=== PATIENT | male | born 1945 | race Caucasian/White ===

== ENCOUNTER 2023-04-15 06:02 | Inpatient (IN) | payer MEDICARE, OTHER, SELFPAY ==
[2023-04-07 07:26] VITALS: BMI 23.9
[2023-04-07 08:49] LABS: Hematocrit 44.8 % (39.0-52.0); Hemoglobin 14.9 g/dL (13.0-18.0); Mean Corp Hgb Conc. 33.3 g/dL (33.0-37.0); Mean Corpuscular Volume 87.2 fL (80.0-94.0); Mean Platelet Volume 11.7 fL (7.4-10.4); Platelet Count 292 10^3/uL (130-400); Red Blood Cell Count 5.14 10^6/uL (4.70-6.10); Red Cell Dist. Width 13.2 % (11.5-14.5); White Blood Cell Count 5.6 10^3/uL (4.8-10.8)
[2023-04-07 08:59] LABS: INR 1.05; PT 13.7 Sec (11.4-14.6)
[2023-04-07 09:12] LABS: APTT 40.3 Sec (23.4-35.0)
[2023-04-07 09:58] LABS: Glycohemoglobin (HgbA1c) 6.2 % (4.0-5.6)
[2023-04-07 10:08] LABS: ALT (SGPT) 17 U/L (0-50); AST (SGOT) 21 U/L (17-59); Albumin 3.5 g/dl (3.5-5.0); Alkaline Phosphatase 72 U/L (38-126); Blood Urea Nitrogen 26 mg/dl (9-20); Calcium 9.8 mg/dl (8.4-10.2); Carbon Dioxide 28 mmol/L (22-30); Chloride 106 mmol/L (98-107); Estimated Creatinine Clearance 45 ml/min; Glucose 106 mg/dl (70-99); Potassium 4.5 mmol/L (3.5-5.1); Sodium 140 mmol/L (135-145); Total Bilirubin 0.6 mg/dl (0.2-1.3); Total Protein 6.7 g/dl (6.3-8.2); eGFR 51.77
[2023-04-15] VITALS (13 sets, daily range): BP systolic 45–149; BP diastolic 74–87; BMI 23.9
[2023-04-15] MEDS: NEURONTIN 600 MG PO (06:26)
[2023-04-15] MEDS: ENTEREG 12 MG PO (06:27)
[2023-04-15] MEDS: HEPARIN 5000 UNITS SC (06:27)
[2023-04-15] MEDS: TYLENOL 1000 MG PO (06:27)
[2023-04-15] MEDS: NORMOSOL-R 1000 IV (06:37)
--- NOTE | 2023-04-15 12:23 | W.IMMPOSTOP ---
Addendum entered and electronically signed by Aron Smith MD 04/15/23 12:33:
Updated patient's , Denise, via phone.
Original Note:
Surgical Immed Post Op Note
-
Primary Surgeon: Nena Smith MD
Assisting Surgeon: ADILENE Means
Pre-op Diagnosis: 1) colostomy 2) history of complicated diverticulitis
Post-op Diagnosis: same
Procedure Performed: 1) robotic colostomy takedown 2) flexible sigmoidoscopy
Anesthesia Type: general plus local
Specimen / Cultures: 1) colostomy 2) upper rectum
Estimated Blood Loss: 100 cc
Complications: no immediate
Operative Findings: 1) adhesions 2) a bit oozy (venous)-1 gram IV TXA given during case.
#19 Marques in pelvis.
Lund, left stent, and ueteral ICG by Dr. Handley of urology.
Will send to med surg.
[2023-04-15 14:06] LABS: % Basophils 0.1 % (0-2); % Immature Granulocytes 0.4 % (0-0.5); % Lymphocytes 4.4 % (20.5-51.1); % Neutrophils 93.1 % (42.2-75.2); Absolute Lymphocytes 0.4 10^3/uL (1.2-3.4); Absolute Monocytes 0.2 10^3/uL (0.1-0.6); Absolute Neutrophils 7.9 10^3/uL (1.4-6.5); Hematocrit 42.4 % (39.0-52.0); Hemoglobin 14.5 g/dL (13.0-18.0); Mean Corp Hgb Conc. 34.2 g/dL (33.0-37.0); Mean Corpuscular Hgb 29.4 pg (27.0-31.0); Mean Platelet Volume 11.5 fL (7.4-10.4); Nucleated Red Blood Cells % 0 % (-); Platelet Count 219 10^3/uL (130-400); Red Blood Cell Count 4.93 10^6/uL (4.70-6.10); Red Cell Dist. Width 13.5 % (11.5-14.5); White Blood Cell Count 8.5 10^3/uL (4.8-10.8)
[2023-04-15 14:12] LABS: Blood Urea Nitrogen 27 mg/dl (9-20); Calcium 8.3 mg/dl (8.4-10.2); Carbon Dioxide 19 mmol/L (22-30); Chloride 106 mmol/L (98-107); Estimated Creatinine Clearance 45 ml/min; Glucose 191 mg/dl (70-99); Magnesium 2.3 mg/dl (1.6-2.3); Potassium 3.9 mmol/L (3.5-5.1); Sodium 135 mmol/L (135-145); eGFR 51.77
[2023-04-15] MEDS: D5LR 1000 IV (14:25)
--- NOTE | 2023-04-15 15:26 | PTCARENOTE ---
Pt arrived to 2S in bed. Full assessment completed. Pt drowsy but easily arouses to verbal stimuli. Nasal cannula maintained. IVF infusing per order. R DIMITRI drain site C/D/I, serosanguineous output noted. R abdominal incisions glued and ELECTRO MECHANICAL TECHNOLOGIST, L
abdominal DSG C/D/I. Lund catheter clean and intact draining blood tinged yellow urine. Bed locked and in the lowest position, safety maintained. Oriented to room and call hearn.
[2023-04-15] MEDS: TYLENOL PO ×2 (16:51→20:41)
[2023-04-16] MEDS: TYLENOL PO ×5 (00:57→19:54)
[2023-04-16] MEDS: D5LR 1000 IV ×2 (01:30→13:05)
[2023-04-16 03:46] VITALS: BP 146/87
[2023-04-16 05:37] VITALS: BMI 23.6
[2023-04-16 06:16] LABS: % Basophils 0.1 % (0-2); % Immature Granulocytes 0.5 % (0-0.5); % Lymphocytes 7.5 % (20.5-51.1); % Monocytes 6.4 % (1.7-9.3); % Neutrophils 85.5 % (42.2-75.2); Absolute Immature Granulocytes 0.1 10^3/uL (0-0.05); Absolute Lymphocytes 0.7 10^3/uL (1.2-3.4); Absolute Monocytes 0.6 10^3/uL (0.1-0.6); Absolute Neutrophils 8.2 10^3/uL (1.4-6.5); Hematocrit 41.4 % (39.0-52.0); Hemoglobin 14.1 g/dL (13.0-18.0); Mean Corp Hgb Conc. 34.1 g/dL (33.0-37.0); Mean Corpuscular Hgb 29.3 pg (27.0-31.0); Mean Corpuscular Volume 85.9 fL (80.0-94.0); Mean Platelet Volume 12.3 fL (7.4-10.4); Nucleated Red Blood Cells % 0 % (-); Platelet Count 228 10^3/uL (130-400); Red Blood Cell Count 4.82 10^6/uL (4.70-6.10); Red Cell Dist. Width 13.4 % (11.5-14.5); White Blood Cell Count 9.6 10^3/uL (4.8-10.8)
[2023-04-16 06:45] LABS: Blood Urea Nitrogen 24 mg/dl (9-20); Calcium 9.2 mg/dl (8.4-10.2); Carbon Dioxide 26 mmol/L (22-30); Chloride 104 mmol/L (98-107); Estimated Creatinine Clearance 49 ml/min; Glucose 145 mg/dl (70-99); Magnesium 2.3 mg/dl (1.6-2.3); Potassium 4.7 mmol/L (3.5-5.1); Sodium 138 mmol/L (135-145); eGFR 56.58
[2023-04-16 07:42] VITALS: BP 158/88
[2023-04-16] MEDS: ENTEREG 12 MG PO ×2 (08:56→19:56)
[2023-04-16] MEDS: CARDIZEM CD 120 MG PO (08:56)
[2023-04-16] MEDS: TOPROL XL 75 MG PO (08:56)
[2023-04-16] MEDS: LOW STRENGTH ASPIRIN 81 MG PO (08:56)
[2023-04-16] MEDS: TYLENOL 650 MG PO ×2 (08:57→21:39)
[2023-04-16] MEDS: PROTONIX 40 MG PO (08:57)
--- NOTE | 2023-04-16 10:49 | W.PN.CRS1 ---
Today's Communication / Plan
-
Lund out, out of bed, clears.
Assessment/Plan
-
POD 1.
1. Trial clears.
2. Vitals and blood work reasonable.
3. DC Lund.
4. Out of bed.
5. Start Lovenox.
Subjective Data
Procedure
Robotic colostomy takedown on 04/15/2023
Subjective Data
Date of Service: April 16, 2023
Mild incisional discomfort. No nausea. In good spirits.
Objective Data
-
Vital Signs
Temp Pulse Resp BP Pulse Ox
97.6 F 87 16 158/88 97
04/16/23 07:42 04/16/23 07:42 04/16/23 07:42 04/16/23 07:42 04/16/23 07:42
Intake & Output
04/15/23 04/16/23 04/17/23
06:59 06:59 06:59
Intake Total 1470 / 1470
Output Total 1380 / 1380
Balance 90 / 90
Intake:
Oral fluids 120 / 120
IV fluids (Total) 1350 / 1350
D5LR 50 / 50
normosol 100 / 100
Output:
Drain Output (Total) 80 / 80
Right Lower Abdomen Jacek- 80 / 80
Bell
Urine, Lund 1300 / 1300
Lab Results
04/16/23 04:49
04/16/23 04:49
Physical Exam
-
General: No Acute Distress
Chest: Clear
Cardiovascular: Regular Rate & Rhythm
Abdomen: Soft, Non Distended, Tender (Mild) and Other (Some serosanguineous)
Extremities: No Calf Tenderness
[2023-04-16 11:37] VITALS: BP 141/96
--- NOTE | 2023-04-16 14:52 | CM ---
Reviewed the chart notes and spoke with the patient and his spouse at the bedside. The patient resides with his spouse in a two story home with two steps to enter. The patient reports no DME/SNF in the past, but has had [facility] in the past. The
patient confirmed his pharmacy of choice is [facility]. CM continues to be available to patient/family and is monitoring medical plan for needs at discharge.
Plan: Discharge to home when medically stable. No needs anticipated.
[2023-04-16 15:10] VITALS: BP 139/80
[2023-04-16] MEDS: LOVENOX 40 MG SC (18:13)
[2023-04-16 19:10] VITALS: BP 158/84
[2023-04-16 23:00] VITALS: BP 155/85
[2023-04-17] MEDS: MORPHINE SULFATE 2 MG IV (00:19)
[2023-04-17] MEDS: D5LR 1000 IV (00:20)
[2023-04-17 03:02] VITALS: BP 139/84
[2023-04-17] MEDS: TYLENOL PO ×5 (04:00→23:17)
[2023-04-17 05:35] VITALS: BMI 23.6
[2023-04-17 07:10] LABS: % Basophils 0.1 % (0-2); % Eosinophils 0.2 % (0-6); % Immature Granulocytes 0.3 % (0-0.5); % Lymphocytes 12.5 % (20.5-51.1); % Monocytes 8.7 % (1.7-9.3); % Neutrophils 78.2 % (42.2-75.2); Absolute Lymphocytes 1.4 10^3/uL (1.2-3.4); Absolute Monocytes 0.9 10^3/uL (0.1-0.6); Absolute Neutrophils 8.4 10^3/uL (1.4-6.5); Hematocrit 48.5 % (39.0-52.0); Hemoglobin 16.3 g/dL (13.0-18.0); Mean Corp Hgb Conc. 33.6 g/dL (33.0-37.0); Mean Corpuscular Volume 86.3 fL (80.0-94.0); Mean Platelet Volume 12.3 fL (7.4-10.4); Nucleated Red Blood Cells % 0 % (-); Platelet Count 236 10^3/uL (130-400); Red Blood Cell Count 5.62 10^6/uL (4.70-6.10); Red Cell Dist. Width 13.7 % (11.5-14.5); White Blood Cell Count 10.8 10^3/uL (4.8-10.8)
[2023-04-17 07:40] VITALS: BP 158/94
[2023-04-17 07:43] LABS: Blood Urea Nitrogen 18 mg/dl (9-20); Calcium 9.2 mg/dl (8.4-10.2); Carbon Dioxide 25 mmol/L (22-30); Chloride 107 mmol/L (98-107); Estimated Creatinine Clearance 53 ml/min; Glucose 121 mg/dl (70-99); Magnesium 2.1 mg/dl (1.6-2.3); Potassium 4.4 mmol/L (3.5-5.1); Sodium 135 mmol/L (135-145); eGFR > 60.00
[2023-04-17] MEDS: TYLENOL 650 MG PO (08:41)
[2023-04-17] MEDS: ENTEREG 12 MG PO ×2 (08:41→20:16)
[2023-04-17] MEDS: PROTONIX 40 MG PO (08:41)
[2023-04-17] MEDS: LOW STRENGTH ASPIRIN 81 MG PO (08:41)
[2023-04-17] MEDS: TOPROL XL 75 MG PO (08:41)
[2023-04-17] MEDS: CARDIZEM CD 120 MG PO (08:41)
--- NOTE | 2023-04-17 11:10 | W.PN.CRS1 ---
Addendum entered and electronically signed by David Tapia MD 04/17/23 11:44:
Patient seen and examined. Agree with assessment plan as documented below by INSURANCE ACCOUNT SPECIALIST.
No major complaints. Pain well-controlled. Reports some belching, but no nausea or vomiting. Reports passing some stool, minimal flatus. OOB/ambulating. Afebrile.
General:�No Acute Distress
Abdomen:�Soft, Non Distended, Tender (Mild incisional) and Other (DIMITRI with serosanguineous fluid)
POD #2�Colostomy reversal
AFVSS
Following expected post op course
Bowel function returning
Labs stable post op
--Advance to FLD
--OOB/Ambulate
--Multimodal pain management. Added Tramadol PO
--Continue home cardiac meds
--Continue DIMITRI until d/c
--VTE ppx with Lovenox and SCD's
Original Note:
Today's Communication / Plan
-
Advance to FLD
Assessment/Plan
-
77 yo male with history of complicated diverticulitis and colostomy creation who is now POD #2 Colostomy reversal
AFVSS
Following expected post op course
Bowel function returning
Labs stable post op
--Advance to FLD
--OOB/Ambulate
--Multimodal pain management. Added Tramadol PO
--Continue home cardiac meds
--Continue DIMITRI until d/c
--VTE ppx with Lovenox and SCD's
Subjective Data
Procedure
Robotic colostomy takedown on 04/15/2023
Subjective Data
Date of Service: April 17, 2023
Patient seen and examined at bedside with Dr. Tapia. Denies n/v. Has had some belching. Passing a little liquid rectally but not sure if he has passed much flatus. Tolerating clears. Abdominal discomfort minimal. Voiding well.
Objective Data
-
Vital Signs
Temp Pulse Resp BP Pulse Ox
97.7 F 64 16 158/94 95
04/17/23 07:40 04/17/23 07:40 04/17/23 07:40 04/17/23 07:40 04/17/23 07:40
Intake & Output
04/16/23 04/17/23 04/18/23
06:59 06:59 07:59
Intake Total 1470 / 1470 3380 / 3380
Output Total 1380 / 1380 2380 / 2380 300 / 300
Balance 90 / 90 1000 / 1000 -300 / -300
Intake:
Oral fluids 120 / 120 1460 / 1460
IV fluids (Total) 1350 / 1350 1920 / 1920
D5LR 50 / 50
normosol 100 / 100
Output:
Drain Output (Total) 80 / 80 140 / 140 300 / 300
Right Lower Abdomen Jacek- 80 / 80 140 / 140 300 / 300
Bell
Urine, Lund 1300 / 1300 800 / 800
Urine, Voided 1440 / 1440
Lab Results
04/17/23 06:08
04/17/23 06:08
Physical Exam
-
General: No Acute Distress
Chest: Clear
Abdomen: Soft, Non Distended, Tender (Mild incisional) and Other (DIMITRI with serosanguineous fluid)
Extremities: No Calf Tenderness
Incision: Clear, Dry, Intact
[2023-04-17 11:25] VITALS: BP 129/95
[2023-04-17 15:35] VITALS: BP 159/104
[2023-04-17] MEDS: LOVENOX 40 MG SC (17:31)
[2023-04-17 19:00] VITALS: BP 123/85
[2023-04-17 23:06] VITALS: BP 151/93
[2023-04-18] MEDS: ZOFRAN 4 MG IV (00:36)
--- NOTE | 2023-04-18 00:42 | PTCARENOTE ---
Reece POD 3 of colostomy takedown having n/v of dark brown emesis at this time (300ml) was changed to full liquid diet and was tolerating in the afternoon. Pt belly soft tender hyperactive b/l uppper quadrants hypoactive b/l lower, not passing
flatus but reports he has had small amount of mucus from rectum and has had throughout with his colostomy. DIMITRI drain has had large amount of serous output over the past 24 hours, over 200ml this morning possible blockage but drained immediately with
repositioning. this shift approx 150ml. Pt has done minimal ambulating even with encouragement. Daphne provided, made NPO per correctional probation officer colorectal MD. Pt resting in bed at this time reports he is feeling more comfortable.
[2023-04-18 03:00] VITALS: BP 158/93
--- NOTE | 2023-04-18 03:47 | PTCARENOTE ---
pt [address] [facility] POD 3 colostomy takedown had espinoza removed POD1, urine cont to remain blood tinged throughout yesterday but clearing to yellow at beginning of my shift, pt just voided 200ml blood tinged urine with approx 4-5 moderate clots. DIMITRI drain
output appears more yellow then serous at his last emptying. Pt reporting that he is feeling comfortable since receiving Zofran VS 158/93 HR 65 95RA 98.7.. Does not look like there are labs ordered in AM.
[2023-04-18] MEDS: TYLENOL PO ×3 (04:34→23:45)
--- NOTE | 2023-04-18 04:40 | PTCARENOTE ---
reached to oncall colorectal team, CBC and BMP ordered for morning. Pt resting comfortably, denies any pain or discomfort, denies nausea at this time
[2023-04-18 06:00] VITALS: BMI 23.0
[2023-04-18 06:33] LABS: % Basophils 0.2 % (0-2); % Eosinophils 0.4 % (0-6); % Immature Granulocytes 0.5 % (0-0.5); % Lymphocytes 17.2 % (20.5-51.1); % Monocytes 8.6 % (1.7-9.3); % Neutrophils 73.1 % (42.2-75.2); Absolute Immature Granulocytes 0.1 10^3/uL (0-0.05); Absolute Lymphocytes 1.9 10^3/uL (1.2-3.4); Absolute Monocytes 0.9 10^3/uL (0.1-0.6); Hematocrit 50.7 % (39.0-52.0); Hemoglobin 17.1 g/dL (13.0-18.0); Mean Corp Hgb Conc. 33.7 g/dL (33.0-37.0); Mean Corpuscular Hgb 28.9 pg (27.0-31.0); Mean Corpuscular Volume 85.6 fL (80.0-94.0); Mean Platelet Volume 11.7 fL (7.4-10.4); Nucleated Red Blood Cells % 0 % (-); Platelet Count 259 10^3/uL (130-400); Red Blood Cell Count 5.92 10^6/uL (4.70-6.10); Red Cell Dist. Width 13.8 % (11.5-14.5); White Blood Cell Count 10.9 10^3/uL (4.8-10.8)
--- NOTE | 2023-04-18 06:33 | PTCARENOTE ---
void at this time slight tinge of red, NO clots. DIMITRI output at end of shift empty at this time tinged pink. Pt had no further episodes of n/v remainder of shift.
[2023-04-18 06:55] LABS: Blood Urea Nitrogen 21 mg/dl (9-20); Calcium 9.5 mg/dl (8.4-10.2); Carbon Dioxide 27 mmol/L (22-30); Chloride 105 mmol/L (98-107); Estimated Creatinine Clearance 49 ml/min; Glucose 116 mg/dl (70-99); Potassium 4.7 mmol/L (3.5-5.1); Sodium 135 mmol/L (135-145); eGFR 56.58
[2023-04-18] MEDS: ULTRAM 50 MG PO (08:07)
[2023-04-18] MEDS: TOPROL XL 75 MG PO (08:10)
[2023-04-18] MEDS: TYLENOL 650 MG PO ×3 (08:12→20:01)
[2023-04-18] MEDS: ENTEREG 12 MG PO ×2 (08:12→20:01)
[2023-04-18] MEDS: LOW STRENGTH ASPIRIN 81 MG PO (08:12)
[2023-04-18] MEDS: PROTONIX 40 MG PO (08:12)
[2023-04-18] MEDS: CARDIZEM CD 120 MG PO (08:12)
[2023-04-18] MEDS: LR 1000 IV ×2 (09:39→20:28)
[2023-04-18 10:09] LABS: Body Fluid Creatinine 1.3 mg/dl
--- NOTE | 2023-04-18 10:21 | W.PN.CRS1 ---
Addendum entered and electronically signed by David Tapia MD 04/18/23 11:06:
Patient seen and examined with PHARMACY BENEFITS COORDINATOR. Agree with assessment plan as documented below.
Issues with nausea and vomiting overnight, back down to NPO. Denies current nausea, but burping and hiccuping. Reports lower abdominal pressure/discomfort. No flatus, minimal liquid per rectum with voiding. Reports of some clots with bleeding
overnight, currently clear and without clots. Afebrile.
Gen: NAD
Abd: soft, mild/moderate tenderness in lower abdomen, mild distension, non-peritoneal, incisions c/d/i - no erythema, ecchymosis or drainage, DIMITRI serous
POD #3�Colostomy reversal
Afebrile, some htn noted
Nausea overnight
Increased DIMITRI outputs noted, DIMITRI fluid sent for cr and equivalent to serum Cr. Increased output likely reactive fluid.
Hematuria overnight, now resolved. Likely secondary to recent instrumentation
Labs stable post op
--NPO with sips, discussed NGT if further nausea or abdominal pain
--Restart IVF and continue until tolerating PO
--OOB/Ambulate
--Multimodal pain management
--Continue home cardiac meds
--Continue DIMITRI
--VTE ppx with Lovenox and SCD's
Original Note:
Today's Communication / Plan
-
NPO until bowel recovery
Start IVF
Assessment/Plan
-
77 yo male with history of complicated diverticulitis and colostomy creation who is now POD #3 Colostomy reversal
Afebrile, some htn noted
Nausea overnight
Increased DIMITRI outputs noted, DIMITRI fluid sent for cr and equivalent to serum Cr. Increased output likely reactive fluid.
Hematuria overnight, now resolved. Likely secondary to recent instrumentation
Labs stable post op
--NPO with sips
--Restart IVF and continue until tolerating PO
--OOB/Ambulate
--Multimodal pain management
--Continue home cardiac meds
--Continue DIMITRI
--VTE ppx with Lovenox and SCD's
Subjective Data
Procedure
Robotic colostomy takedown on 04/15/2023
Subjective Data
Date of Service: April 18, 2023
Patient seen and examined at bedside with Dr. Tapia. Developed nausea overnight, now resolved. Belching persists. Not much flatus but does note that there is some liquid passing rectally with each void. Abdominal discomfort manageable. Some
hematuria overnight now resolved.
Objective Data
-
Vital Signs
Temp Pulse Resp BP Pulse Ox
98.7 F 72 14 163/101 95
04/18/23 03:00 04/18/23 08:10 04/18/23 03:00 04/18/23 08:10 04/18/23 03:00
Intake & Output
04/17/23 04/18/23 04/19/23
05:59 06:59 06:59
Intake Total 480 / 480
Output Total 1100 / 1100
Balance -620 / -620
Intake:
Oral fluids 480 / 480
IV fluids (Total)
Output:
Emesis 300 / 300
Drain Output (Total) 250 / 250
Right Lower Abdomen Jacek- 250 / 250
Bell
Urine, Lund
Urine, Voided 550 / 550
Lab Results
04/18/23 06:13
04/18/23 06:13
Physical Exam
-
General: No Acute Distress
Abdomen: Soft, Non Distended, Tender (Mild to the lower pelvis) and Other (DIMITRI with light mostly serous fluid)
Incision: Clear, Dry, Intact
[2023-04-18 10:30] VITALS: BP 148/80
[2023-04-18 11:45] VITALS: BP 149/94
[2023-04-18] MEDS: ULTRAM 25 MG PO (14:09)
[2023-04-18 15:18] VITALS: BP 169/87
[2023-04-18] MEDS: LOVENOX 40 MG SC (17:03)
[2023-04-18 19:32] VITALS: BP 161/96
[2023-04-18 23:03] VITALS: BP 148/91
[2023-04-19] VITALS (9 sets, daily range): BP systolic 122–190; BP diastolic 74–111; PULSE 69; O2SAT 94; BMI 22.7
[2023-04-19] MEDS: TYLENOL 650 MG PO ×3 (00:11→11:09)
[2023-04-19] MEDS: ULTRAM 50 MG PO ×2 (00:49→07:03)
[2023-04-19] MEDS: MORPHINE SULFATE 4 MG IV ×4 (01:26→20:09)
[2023-04-19] MEDS: TYLENOL PO (03:24)
[2023-04-19 05:35] LABS: Hematocrit 46.9 % (39.0-52.0); Hemoglobin 15.9 g/dL (13.0-18.0); Mean Corp Hgb Conc. 33.9 g/dL (33.0-37.0); Mean Corpuscular Hgb 29.1 pg (27.0-31.0); Mean Corpuscular Volume 85.7 fL (80.0-94.0); Mean Platelet Volume 11.7 fL (7.4-10.4); Platelet Count 240 10^3/uL (130-400); Red Blood Cell Count 5.47 10^6/uL (4.70-6.10); Red Cell Dist. Width 13.6 % (11.5-14.5); White Blood Cell Count 7.7 10^3/uL (4.8-10.8)
[2023-04-19 05:59] LABS: Blood Urea Nitrogen 32 mg/dl (9-20); Calcium 9.5 mg/dl (8.4-10.2); Carbon Dioxide 28 mmol/L (22-30); Chloride 102 mmol/L (98-107); Estimated Creatinine Clearance 48 ml/min; Glucose 107 mg/dl (70-99); Potassium 4.9 mmol/L (3.5-5.1); Sodium 135 mmol/L (135-145); eGFR 56.58
[2023-04-19] MEDS: LOW STRENGTH ASPIRIN 81 MG PO (07:41)
[2023-04-19] MEDS: ENTEREG 12 MG PO (07:42)
[2023-04-19] MEDS: TOPROL XL 75 MG PO (07:42)
[2023-04-19] MEDS: CARDIZEM CD 120 MG PO (07:42)
[2023-04-19] MEDS: PROTONIX 40 MG PO (07:42)
[2023-04-19] MEDS: LR 1000 IV ×2 (08:59→21:39)
[2023-04-19] MEDS: APRESOLINE 5 MG IV ×2 (09:30→16:19)
--- NOTE | 2023-04-19 10:05 | W.PN.CRS1 ---
Today's Communication / Plan
-
abdominal xrays
PT
Assessment/Plan
-
Assessment: 77 yo male with history of complicated diverticulitis and colostomy creation who is now�POD #4�Colostomy reversal
Plan:
1. Vitals normal.
2. Hypertensive - hydralazine PRN ordered.
3. Continue SILVIANO drain until discharge.
4. OOB. PT ordered.
5. Pain management: Tylenol standing, Morphine/Ultram PRN.
6. Given lack of bowel function and pain, abdominal xrays ordered.
7. Remain NPO with sips.
8. DVT prophylaxis: TEDS/SCDS and Lovenox.
Subjective Data
Procedure
Robotic colostomy takedown on 04/15/2023
Subjective Data
Date of Service: April 19, 2023
Patient states he has not had flatus or a bowel movement. He is burping. He vomited yesterday but not today. He has a lot of abdominal pain that comes and goes.
Objective Data
-
Vital Signs
Temp Pulse Resp BP Pulse Ox
97.5 F 68 17 158/103 95
04/19/23 07:52 04/19/23 09:30 04/19/23 07:52 04/19/23 09:30 04/19/23 07:52
Intake & Output
04/18/23 04/19/23 04/20/23
06:59 06:59 06:59
Intake Total 2160 / 2160
Output Total 2044
Balance 115 / 115
Intake:
Oral fluids 480 / 480
IV fluids (Total) 1680 / 1680
Output:
Emesis 300 / 300
Drain Output (Total) 670 / 670
Right Lower Abdomen Jacek- 670 / 670
Bell
Urine, Voided 1075 / 1075
Other:
Number of approximated MODERATE 2
amounts of urine
Lab Results
04/19/23 05:00
04/19/23 05:00
Physical Exam
-
General: No Acute Distress and AOx3
Abdomen: Soft, Tender (lower pelvis), Guarding and Other (silviano serous)
--- NOTE | 2023-04-19 14:23 | CM ---
Reviewed the chart notes and spoke with the patient at the bedside. Patient no NPO with NGT. CM continues to be available to patient/family and is monitoring medical plan for needs at discharge.
Plan: Discharge to home when medically stable. No needs anticipated.
[2023-04-19] MEDS: LOVENOX 40 MG SC (17:25)
[2023-04-19] MEDS: DILAUDID 1 MG IV (23:43)
[2023-04-20] VITALS (7 sets, daily range): BP systolic 115–165; BP diastolic 81–98; BMI 23.2
[2023-04-20] MEDS: DILAUDID 1 MG IV ×2 (02:51→22:18)
[2023-04-20] MEDS: MORPHINE SULFATE 4 MG IV (05:39)
[2023-04-20] MEDS: CARDIZEM 125 IV (06:03)
[2023-04-20] MEDS: DILAUDID 0.5 MG IV (08:05)
[2023-04-20] MEDS: PROTONIX IV 40 MG IV (08:06)
[2023-04-20] MEDS: NSS (PRESERVATIVE FREE) 10 ML IV (08:06)
[2023-04-20] MEDS: LR 1000 IV (10:59)
[2023-04-20 11:15] LABS: Blood Urea Nitrogen 32 mg/dl (9-20); Calcium 9.1 mg/dl (8.4-10.2); Carbon Dioxide 26 mmol/L (22-30); Chloride 106 mmol/L (98-107); Estimated Creatinine Clearance 53 ml/min; Glucose 105 mg/dl (70-99); Potassium 4.3 mmol/L (3.5-5.1); Sodium 136 mmol/L (135-145); eGFR > 60.00
--- NOTE | 2023-04-20 11:38 | W.PN.CRS1 ---
Today's Communication / Plan
-
Continue n.p.o. and NGT to LCS, continue IVF
Assessment/Plan
-
77-year-old male with PMH of A-fib (not on AC), HTN, stage III CKD and perforated diverticulitis with Bergman's procedure in 11/2022, presents for elective surgery
POD 5 robotic colostomy reversal c/b prolonged return of bowel function
AFVSS, abdominal exam mostly stable but feeling better after NG tube placement
No labs today
� Continue n.p.o. with IVF and NGT to LCS
�DIMITRI drain to bulb suction
� Continue pain control with Tylenol and tramadol as needed
� Continue DVT PPx with Lovenox
� Continue home meds
� I would not get a CT scan today as he has shown some clinical improvement, but would consider if no further improvement by tomorrow
� IS/OOB
Subjective Data
Procedure
Robotic colostomy takedown on 04/15/2023
Subjective Data
Date of Service: April 20, 2023
No overnight events. An NG tube was placed yesterday afternoon and put out 40 mL of brown fluid.
Pain well-controlled. Abdominal cramping and bloating improved.
Denies nausea/vomiting.
-flatus -BMs +voiding
Pt is OOB.
Objective Data
-
Vital Signs
Temp Pulse Resp BP Pulse Ox
97.6 F 75 16 153/88 97
04/20/23 11:26 04/20/23 11:26 04/20/23 11:26 04/20/23 11:26 04/20/23 11:26
Intake & Output
04/19/23 04/20/23 04/21/23
06:59 06:59 06:59
Intake Total 2160 / 2160 970 / 970
Output Total 2044 / 2044 1420 / 1420
Balance 115 / 115 -450 / -450
Intake:
Oral fluids 480 / 480
IV fluids (Total) 1680 / 1680 880 / 880
Amount instilled into GI Tube ( /
Total)
[place] Sump /
Output:
Emesis 300 / 300
Drain Output (Total) 670 / 670 430 / 430
Right Lower Abdomen Jacek- 670 / 670 430 / 430
Bell
Gastrointestinal tube output ( 40 /
Total)
[place] Sump 40 / 40
Urine, Voided 1075 / 1075 950 / 950
Other:
Number of approximated MODERATE 2
amounts of urine
Lab Results
04/19/23 05:00
04/20/23 10:34
Physical Exam
-
General: No Acute Distress and AOx3
HEENT: Other (NGT-40 mL brown output)
Abdomen: Soft, Distended (Mildly distended (somewhat improved from yesterday)), Non Tender, No Guarding, No Rebound and Other (DIMITRI-430 mL serous)
Skin: Warm and Dry
Wound: No Signs of Infection and No Skin Erythema
--- NOTE | 2023-04-20 11:49 | CM ---
Reviewed the chart notes. Patient continues with NPO , NGT, IVF, and DIMITRI drain. Patient ambulatory. CM continues to be available to patient/family and is monitoring medical plan for needs at discharge.
Plan: Discharge hopefully to home with no needs when medically stable.
[2023-04-20] MEDS: LOVENOX 40 MG SC (17:06)
[2023-04-21] VITALS (8 sets, daily range): BP systolic 132–156; BP diastolic 79–103; PULSE 94; O2SAT 92; BMI 22.9
[2023-04-21] MEDS: DILAUDID 0.5 MG IV ×5 (03:37→21:48)
[2023-04-21 07:31] LABS: Blood Urea Nitrogen 28 mg/dl (9-20); Carbon Dioxide 25 mmol/L (22-30); Chloride 106 mmol/L (98-107); Estimated Creatinine Clearance 52 ml/min; Glucose 93 mg/dl (70-99); Sodium 136 mmol/L (135-145); eGFR > 60.00
[2023-04-21] MEDS: FLUSH (NSS) 1 FLUSH IV (08:11)
[2023-04-21] MEDS: NSS (PRESERVATIVE FREE) 10 ML IV (08:11)
[2023-04-21] MEDS: PROTONIX IV 40 MG IV (08:11)
[2023-04-21] MEDS: LR 500 IV (08:15)
--- NOTE | 2023-04-21 09:23 | W.PN.CRS1 ---
Today's Communication / Plan
-
Continue NPO and NG tube
CT A/P
Assessment/Plan
-
77-year-old male with PMH of A-fib (not on AC), HTN, stage III CKD and perforated diverticulitis with Bergman's procedure in 11/2022, presents for elective surgery
POD 6 robotic colostomy reversal c/b prolonged return of bowel function
1. Continue n.p.o. with LR @ 80 and NGT to LCS
2. DIMITRI drain to bulb suction
3. Continue pain control with Tylenol and tramadol as needed
4. Continue DVT PPx with Lovenox
5. Continue home meds
6. Out of bed as tolerated.
7. I spoke with Dr. Smith and given his lack of improvement, CT A/P ordered.
Subjective Data
Procedure
Robotic colostomy takedown on 04/15/2023
Subjective Data
Date of Service: April 21, 2023
Patient states he has had no gas or bowel movements. He still feels a little bloated. He has been walking the halls. He denies nausea or vomiting.
Objective Data
-
Vital Signs
Temp Pulse Resp BP Pulse Ox
98.0 F 89 18 146/79 98
04/21/23 08:00 04/21/23 08:00 04/21/23 08:00 04/21/23 08:00 04/21/23 08:00
Intake & Output
04/20/23 04/21/23 04/22/23
06:59 06:59 06:59
Intake Total 970 / 970 780 / 780
Output Total 1420 / 1420 1700 / 1700
Balance -450 / -450 -920 / -920
Intake:
Oral fluids 240 / 240
IV fluids (Total) 880 / 880 360 / 360
Amount instilled into GI Tube ( 90 / 90 180 / 180
Total)
[place] Sump 90 / 90 180 / 180
Output:
Drain Output (Total) 430 / 430 150 / 150
Right Lower Abdomen Jacek- 430 / 430 150 / 150
Bell
Gastrointestinal tube output ( 40 / 40 300 / 300
Total)
[place] Sump 40 / 40 300 / 300
Urine, Voided 950 / 950 1250 / 1250
Lab Results
04/19/23 05:00
04/21/23 05:44
Physical Exam
-
General: No Acute Distress and AOx3
Abdomen: Soft, Distended (Mild), Non Tender and Other (DIMITRI drain serous)
Skin: Warm
[2023-04-21] MEDS: OMNIPAQUE 50 ML PO (11:08)
--- NOTE | 2023-04-21 11:10 | PTCARENOTE ---
Addendum entered by Mayra Kunz RN 04/21/23 13:17:
pt transported to CT scan via stretcher with volunteer.
Addendum entered by Mayra Kunz RN 04/21/23 12:34:
ct contrast #2 instilled via NGT at 1205. pt c/o abdominal fullness and discomfort-medicated per APR.
Original Note:
CT contrast cup #1 instilled via R NGT without incident. NGT remains clamped. denies nausea. will observe.
--- NOTE | 2023-04-21 12:09 | CM ---
Reviewed the chart notes. Per notes, continue NPO, DIMITRI drain, and NG tube. Patient ambulatory in hallways. CM continues to be available to patient/family and is monitoring medical plan for needs at discharge.
Plan: Discharge to home with hopefully no needs.
--- NOTE | 2023-04-21 13:54 | CON.HOSP ---
Consultation
-
Date/Time Consultation Requested: 04/21/2023
Date/Time Consultation Performed: 04/21/2023
Requesting Provider: Dr Smith
Performing Provider: Dr Garcia
Reason for Consultation: Medical comanagement
Family Physician
-
Family Physician: Rachele Aguiar
Chief Complaint
-
Status post colostomy takedown/medical comanagement.
History of Present Illness
Patient is 77 years old male with history of complicated diverticulitis and colostomy who underwent colostomy takedown on 04/15 and remains in the hospital with postoperative ileus. Patient with history of paroxysmal atrial fibrillation, NSVT,
hypertension, chronic kidney disease and dyslipidemia. Medicine service has been consulted for medical comanagement.
Patient with prolonged postoperative ileus remains with NG tube awaiting for bowel function return. Not able to take oral medications including antihypertensive.
Medical History
Past Medical History
Past Medical History: Reports Arrhythmia and HTN
Past Surgical History: Reports Bowel Resection
Social History
Tobacco: Non-smoker
Alcohol: None
Drug: None
Living: With Family
Allergies / Home Medications
Allergies reflects when Allergies were last updated in [employer].
Home Medications with original date entered in [employer]
Allergy/Medication List:
Allergies
Allergy/AdvReac Type Severity Reaction Status Date / Time
No Known Allergies Allergy Verified 04/15/23 06:12
Home Medications
aspirin 81 mg chewable tablet 81 mg PO DAILY Blood clot prevention/tx #30 tabs 11/15/22
diltiazem HCl 120 mg capsule,extended release 24 hr (Cardizem CD) 120 mg PO DAILY Arrhythmia #30 caps 11/15/22
metoprolol succinate 50 mg tablet,extended release 24 hr 75 mg PO DAILY 04/13/23
sodium sul 1.479 gram-potas ch 0.188 gram-magnes sul 0.225 gram tablet (Sutab) 0 tab PO PRE OP 04/13/23
Review of Systems
-
A 12 point Review of Systems was completed except as noted: Yes
Physical Exam
Vital Signs
Vital Signs
Temp Pulse Resp BP Pulse Ox
98.2 F 93 18 140/99 98
04/21/23 11:00 04/21/23 11:00 04/21/23 11:00 04/21/23 11:00 04/21/23 11:00
Physical Exam
General: Well Developed, Well Nourished and No Apparent Distress
HEENT: Normocephalic, Moist Mucous Membranes and Atraumatic
Respiratory: Clear
Cardiac: S1/S2 and Regular Rhythm; Negative Murmur or Rub
GI: Soft, Non Tender and Non Distended
Rectal: Deferred by Provider and Other (Hypoactive bowel sounds. Right lower quadrant DIMITRI drain)
Musculoskeletal: No Clubbing, No Cyanosis and No Edema
Skin: Negative Rash
Neuro: Awake, Alert, Oriented, AO x 3 and Nonfocal/Grossly Intact
Laboratory Results
-
Laboratory Results
04/19/23 05:00
04/21/23 05:44
PT 13.7 Sec (11.4-14.6) 04/07/23 06:37
INR 1.05 04/07/23 06:37
APTT 40.3 Sec (23.4-35.0) H 04/07/23 06:37
Total Bilirubin 0.6 mg/dl (0.2-1.3) 04/07/23 06:37
AST 21 U/L (17-59) 04/07/23 06:37
ALT 17 U/L (0-50) 04/07/23 06:37
Alkaline Phosphatase 72 U/L (38-126) 04/07/23 06:37
Impression / Plan
-
IMPRESSION:
Status post colostomy takedown.
Complicated diverticulitis with bowel resection and colostomy. (Gomez procedure 11/09/2022)
Postoperative ileus
Other conditions:
Short episode/self-limited postoperative A-fib.
NSVT.
CKD stage IIIa.
Essential hypertension
Dyslipidemia
PLAN:
NG tube in place awaiting return of bowel function
For repeat CT scan of the abdomen today
Cardiovascular
Remains in sinus rhythm with episodes of sinus tachycardia.
Monitor for recurrent A-fib
Has been off oral medications including diltiazem and metoprolol.
Continue Cardizem drip currently at 2.5 mg an hour.
Follow electrolytes.
Chronic kidney disease stage IIIa.
Creatinine at baseline
Medicine will follow.
--- NOTE | 2023-04-21 15:52 | W.PN.UPDATE ---
Update Note
Progress Note Update
CT scan done this afternoon reviewed. I reviewed both the images and report. CT shows evidence for small bowel obstruction. There is no evidence for free air, perforation, or pneumatosis intestinalis. There is no evidence for abscess or
anastomotic issue. I reviewed the results with the patient and his at the bedside. Given his relative stability and this being an early postop small bowel obstruction, I recommended continued medical measures for now. He may need TPN over
the next few days. Hopefully his obstruction will resolve with these measures. If not repeat imaging and potential for reoperative surgery may be needed.
[2023-04-21] MEDS: LOVENOX 40 MG SC (17:50)
[2023-04-21] MEDS: LR 1000 IV (21:43)
[2023-04-21] MEDS: LR IV (21:44)
[2023-04-22] MEDS: DILAUDID 1 MG IV ×2 (00:08→21:54)
[2023-04-22 03:41] VITALS: BP 122/83
[2023-04-22] MEDS: DILAUDID 0.5 MG IV ×4 (03:59→15:44)
[2023-04-22] MEDS: CARDIZEM 125 IV (04:20)
[2023-04-22] MEDS: LR IV (05:05)
[2023-04-22 05:31] LABS: Blood Urea Nitrogen 27 mg/dl (9-20); Carbon Dioxide 24 mmol/L (22-30); Chloride 103 mmol/L (98-107); Estimated Creatinine Clearance 57 ml/min; Glucose 94 mg/dl (70-99); Potassium 3.8 mmol/L (3.5-5.1); Sodium 135 mmol/L (135-145); eGFR > 60.00
[2023-04-22 06:00] VITALS: BMI 23.0
[2023-04-22 08:04] VITALS: BP 134/87
[2023-04-22] MEDS: NSS (PRESERVATIVE FREE) 10 ML IV (08:12)
[2023-04-22] MEDS: PROTONIX IV 40 MG IV (08:12)
--- NOTE | 2023-04-22 09:31 | W.PN.CRS1 ---
Today's Communication / Plan
-
KUB
NGT
Assessment/Plan
-
77-year-old male with PMH of A-fib (not on AC), HTN, stage III CKD and perforated diverticulitis with Bergman's procedure in 11/2022, presents for elective surgery
POD 7 robotic colostomy reversal, SBO
1.� Continue n.p.o. with LR @ 80 and NGT to LCS
2.� DIMITRI drain to bulb suction
3.� Continue pain control with Tylenol and tramadol as needed
4.� Continue DVT PPx with Lovenox
5.� Continue home meds
6.� Out of bed as tolerated with PT.
7. NGT with 1.2L output, KUB ordered.
8. No plans for surgery at this time.
9. Will consider TPN in the next few days if remains NPO/NGT.
Subjective Data
Procedure
Robotic colostomy takedown on 04/15/2023
Subjective Data
Date of Service: April 22, 2023
Patient states he feels 'about the same'. He has no nausea or vomiting. He has no gas or bowel movements today.
Objective Data
-
Vital Signs
Temp Pulse Resp BP Pulse Ox
97.7 F 95 18 134/87 95
04/22/23 08:04 04/22/23 08:04 04/22/23 08:04 04/22/23 08:04 04/22/23 08:04
Intake & Output
04/21/23 04/22/23 04/23/23
06:59 06:59 06:59
Intake Total 780 / 780 990 / 990
Output Total 1700 / 1700 670 / 670
Balance -920 / -920 320 / 320
Intake:
Oral fluids 240 / 240
IV fluids (Total) 360 / 360 990 / 990
Amount instilled into GI Tube ( 180 / 180
Total)
[place] Sump 180 / 180
Output:
Drain Output (Total) 150 / 150 20 / 20
Right Lower Abdomen Jacek- 150 / 150 20 / 20
Bell
Gastrointestinal tube output ( 300 / 300
Total)
[place] Sump 300 / 300
Urine, Voided 1250 / 1250 650 / 650
Lab Results
04/19/23 05:00
04/22/23 04:42
Physical Exam
-
General: No Acute Distress and AOx3
Abdomen: Soft, Non Distended and Non Tender
Skin: Warm and Dry
--- NOTE | 2023-04-22 09:48 | CM ---
Reviewed the chart notes. Continue NPO with IVF, DIMITRI drain and NGT. CM continues to be available to patient/family and is monitoring medical plan for needs at discharge.
Plan: Discharge to home when medically stable. No anticipated needs.
[2023-04-22] MEDS: LR 1000 IV (10:47)
[2023-04-22 11:55] VITALS: BP 130/83
[2023-04-22 15:34] VITALS: BP 126/90
[2023-04-22] MEDS: LOVENOX 40 MG SC (17:04)
--- NOTE | 2023-04-22 18:27 | W.PN.HOSP.TC ---
Today's Communication/Plan
-
Remains n.p.o. with NGT tube awaiting return of bowel function
Continue IV fluids monitor electrolytes
Continue IV Cardizem for rate control
Assessment / Plan
Assessment / Plan
IMPRESSION:�
Status post colostomy takedown.
Complicated diverticulitis with bowel resection and colostomy.� (Gomez procedure 11/09/2022)
Postoperative ileus
Other conditions:
Short episode/self-limited postoperative A-fib.
NSVT.
CKD stage IIIa.
Essential hypertension
Dyslipidemia
PLAN:
NG tube in place awaiting return of bowel function
Repeat CT scan and x-ray consistent with persistent small bowel obstruction.
Cardiovascular
Remains in sinus rhythm with episodes of sinus tachycardia.
Monitor for recurrent A-fib
Has been off oral medications including diltiazem and metoprolol.
Continue Cardizem drip currently at 2.5 mg an hour.
Follow electrolytes.
Chronic kidney disease stage IIIa.
Creatinine at baseline
Anticipated Discharge: > 48 hours
Subjective/Interval History
-
Date of Service: April 22, 2023
Objective Data
-
Vital Signs:
Vital Signs
Temp Pulse Resp BP Pulse Ox
97.8 F 101 18 126/90 96
04/22/23 15:34 04/22/23 15:34 04/22/23 15:34 04/22/23 15:34 04/22/23 15:34
I&O
04/21/23 04/22/23 04/23/23
06:59 06:59 06:59
Intake Total 780 / 780 990 / 990 1080 / 1080
Output Total 1700 / 1700 670 / 670 1130 / 1130
Balance -920 / -920 320 / 320 -50 / -50
Physical Exam
-
General: Well Developed and No Apparent Distress
HEENT: Normocephalic, Atraumatic and Moist Mucous Membranes
Respiratory: Clear to Auscultation
Cardiac: Regular Rhythm and S1/S2; Negative Murmur, Rub or Gallop
GI: Soft, Nontender, Nondistended, Normal Bowel Sounds and Other (NG tube. Right lower quadrant DIMITRI drain in place); Negative Organomegaly
Rectal: Deferred by Provider
Musculoskeletal: No Clubbing, No Cyanosis and No Edema
Skin: Negative Rash
Neuro: Nonfocal/Grossly Intact
[2023-04-22 20:19] VITALS: BP 131/90
[2023-04-22 23:15] VITALS: BP 110/84
--- NOTE | 2023-04-22 23:43 | PTCARENOTE ---
Pt ambulated on unit. Pt has passed small amounts of mucus from rectum and two very small pieces of formed soft stool.
[2023-04-23] VITALS (8 sets, daily range): BP systolic 115–155; BP diastolic 85–95; BMI 23.0
[2023-04-23] MEDS: LR 1000 IV ×2 (01:00→16:45)
[2023-04-23] MEDS: DILAUDID 0.5 MG IV ×6 (02:51→22:32)
[2023-04-23] MEDS: NSS (PRESERVATIVE FREE) 10 ML IV (07:45)
[2023-04-23] MEDS: PROTONIX IV 40 MG IV (07:45)
--- NOTE | 2023-04-23 10:10 | PTOTSP ---
Pt is taking daily walks in hallway with staffing consultant. Gait is steady without AD per RN. PT will sign off.
--- NOTE | 2023-04-23 10:42 | W.PN.CRS1 ---
Addendum entered and electronically signed by Aron Smith MD 04/23/23 16:16:
I saw and examined the patient.
The PA's note was reviewed and I agree with the note.
Comment:
Patient seen with PA in the a.m.
Denied bowel function although apparently had a BM this afternoon. Denied nausea. Minimal discomfort. Admits that he only walked once yesterday.
Afebrile. Heart rate 90s. Electrolytes reasonable.
NG tube with dark output.
Abdomen with some distention. Minimally tender. Incisions look fine.
Plain x-rays from yesterday with no change from prior set showing small bowel obstruction.
Continue current measures including n.p.o., NG tube, nutritional support via TPN. Emphasized the patient needs to get out of bed more and walk the halls.
Await further evidence for bowel function.
Original Note:
Today's Communication / Plan
-
PICC/TPN
Assessment/Plan
-
77-year-old male with PMH of A-fib (not on AC), HTN, stage III CKD and perforated diverticulitis with Bergman's procedure in 11/2022, presents for elective surgery
POD#8 robotic colostomy reversal, SBO
1.� Continue n.p.o. with LR @ 80 and NGT to LCS
2.� DIMITRI drain to bulb suction
3.� Continue pain control with Tylenol and tramadol as needed
4.� Continue DVT PPx with Lovenox
5.� Continue home meds
6.� Out of bed as tolerated with PT.
7.� Given lack of nutrition, will order PICC and TPN today.
8.� No plans for surgery at this time.
Subjective Data
Procedure
Robotic colostomy takedown on 04/15/2023
Subjective Data
Date of Service: April 23, 2023
Patient states he is in moderate pain which is unchanged. He denies nausea or vomiting. He has been walking the halls.
Objective Data
-
Vital Signs
Temp Pulse Resp BP Pulse Ox
98.3 F 96 18 115/85 96
04/23/23 07:15 04/23/23 09:14 04/23/23 09:14 04/23/23 09:14 04/23/23 07:15
Intake & Output
04/22/23 04/23/23 04/24/23
06:59 06:59 06:59
Intake Total 990 / 990 1140 / 1140
Output Total 670 / 670 1695 / 1695
Balance 320 / 320 -555 / -555
Intake:
IV fluids (Total) 990 / 990 990 / 990
Amount instilled into GI Tube ( 150 / 150
Total)
[place] Sump 150 / 150
Output:
Drain Output (Total) /
Right Lower Abdomen Jacek- /
Bell
Gastrointestinal tube output ( 700 / 700
Total)
[place] Sump 700 / 700
Urine, Voided 650 / 650 800 / 800
Lab Results
04/19/23 05:00
04/22/23 04:42
Physical Exam
-
General: No Acute Distress and AOx3
Abdomen: Soft, Non Distended and Tender (Mild around abdomen)
Incision: Clear, Dry, Intact
[2023-04-23 12:19] LABS: ALT (SGPT) 28 U/L (0-50); AST (SGOT) 34 U/L (17-59); Albumin 2.8 g/dl (3.5-5.0); Alkaline Phosphatase 63 U/L (38-126); Magnesium 2.2 mg/dl (1.6-2.3); Phosphorus 3.7 mg/dl (2.5-4.5); Total Bilirubin 1.6 mg/dl (0.2-1.3); Total Protein 5.4 g/dl (6.3-8.2); Triglycerides 116 mg/dl (10-149)
--- NOTE | 2023-04-23 14:05 | W.PN.HOSP.TC ---
Today's Communication/Plan
-
Awaiting return of bowel function
Remains with significant output through NG tube
Abdomen soft but hypoactive.
Follow electrolytes
TPN.
Continue Cardizem drip
Assessment / Plan
Assessment / Plan
IMPRESSION:�
Status post colostomy takedown.
Complicated diverticulitis with bowel resection and colostomy.� (Gomez procedure 11/09/2022)
Postoperative ileus
Other conditions:
Short episode/self-limited postoperative A-fib.
NSVT.
CKD stage IIIa.
Essential hypertension
Dyslipidemia
PLAN:
NG tube in place awaiting return of bowel function
Repeat CT scan and x-ray consistent with persistent small bowel obstruction.
Cardiovascular
Remains in sinus rhythm with episodes of sinus tachycardia.
Monitor for recurrent A-fib
Has been off oral medications including diltiazem and metoprolol.
Continue Cardizem drip currently at 2.5 mg an hour.
Follow electrolytes.
Chronic kidney disease stage IIIa.
Creatinine at baseline
Anticipated Discharge: > 48 hours
Subjective/Interval History
-
Date of Service: April 23, 2023
Objective Data
-
Labs:
Laboratory Results
04/23/23
11:29
Total Bilirubin 1.6 H
AST 34
ALT 28
Alkaline Phosphatase 63
Vital Signs:
Vital Signs
Temp Pulse Resp BP Pulse Ox
98.3 F 97 18 130/86 95
04/23/23 11:30 04/23/23 11:30 04/23/23 11:30 04/23/23 11:30 04/23/23 11:30
I&O
04/22/23 04/23/23 04/24/23
06:59 06:59 06:59
Intake Total 990 / 990 1140 / 1140
Output Total 670 / 670 1695 / 1695
Balance 320 / 320 -555 / -555
Physical Exam
-
General: Well Developed and No Apparent Distress
HEENT: Normocephalic, Atraumatic and Moist Mucous Membranes
Respiratory: Clear to Auscultation
Cardiac: Regular Rhythm and S1/S2; Negative Murmur, Rub or Gallop
GI: Soft, Nontender, Nondistended and Other (NG tube in place. Hypoactive bowel sounds); Negative Organomegaly
Rectal: Deferred by Provider
Musculoskeletal: No Clubbing, No Cyanosis and No Edema
Skin: Negative Rash
Neuro: Nonfocal/Grossly Intact
[2023-04-23] MEDS: CARDIZEM 125 IV (16:35)
[2023-04-23] MEDS: LOVENOX 40 MG SC (17:01)
[2023-04-23] MEDS: APRESOLINE 5 MG IV (17:05)
[2023-04-23] MEDS: LOPRESSOR 5 MG IV (18:22)
--- NOTE | 2023-04-23 19:17 | PTCARENOTE ---
Patient noted to have a nonsustained run of SVT, patient asymptomatic; Patient rhythm returned to normal sinus rhythm to sinus tachycardia; Dr. Smith made aware; House provider made aware
[2023-04-23 19:56] LABS: Blood Urea Nitrogen 30 mg/dl (9-20); Calcium 8.8 mg/dl (8.4-10.2); Carbon Dioxide 24 mmol/L (22-30); Chloride 104 mmol/L (98-107); Estimated Creatinine Clearance 57 ml/min; Glucose 103 mg/dl (70-99); Magnesium 2.2 mg/dl (1.6-2.3); Potassium 3.8 mmol/L (3.5-5.1); Sodium 136 mmol/L (135-145); eGFR > 60.00
[2023-04-23] MEDS: Parenteral Nutrition, Central 890 IV (21:01)
[2023-04-23 23:50] LABS: Glucose - Point of Care 124 mg/dl (70-99)
[2023-04-24] MEDS: LR 1000 IV ×2 (00:45→15:38)
[2023-04-24 03:10] VITALS: BP 136/92
[2023-04-24 06:00] VITALS: BMI 23.0
[2023-04-24 06:06] LABS: Glucose - Point of Care 133 mg/dl (70-99)
[2023-04-24 06:53] LABS: % Basophils 0.6 % (0-2); % Eosinophils 5.6 % (0-6); % Immature Granulocytes 2.1 % (0-0.5); % Lymphocytes 14.9 % (20.5-51.1); % Neutrophils 66.8 % (42.2-75.2); Absolute Eosinophils 0.4 10^3/uL (0-0.7); Absolute Immature Granulocytes 0.1 10^3/uL (0-0.05); Absolute Monocytes 0.7 10^3/uL (0.1-0.6); Absolute Neutrophils 4.4 10^3/uL (1.4-6.5); Hematocrit 42.3 % (39.0-52.0); Hemoglobin 14.3 g/dL (13.0-18.0); Mean Corp Hgb Conc. 33.8 g/dL (33.0-37.0); Mean Corpuscular Hgb 29.2 pg (27.0-31.0); Mean Corpuscular Volume 86.5 fL (80.0-94.0); Mean Platelet Volume 12.2 fL (7.4-10.4); Nucleated Red Blood Cells % 0 % (-); Platelet Count 208 10^3/uL (130-400); Red Blood Cell Count 4.89 10^6/uL (4.70-6.10); Red Cell Dist. Width 13.8 % (11.5-14.5); White Blood Cell Count 6.6 10^3/uL (4.8-10.8)
[2023-04-24 07:35] VITALS: BP 137/92
[2023-04-24 07:38] LABS: Blood Urea Nitrogen 28 mg/dl (9-20); Calcium 8.3 mg/dl (8.4-10.2); Carbon Dioxide 27 mmol/L (22-30); Chloride 108 mmol/L (98-107); Estimated Creatinine Clearance 57 ml/min; Glucose 141 mg/dl (70-99); Magnesium 2.3 mg/dl (1.6-2.3); Phosphorus 2.8 mg/dl (2.5-4.5); Potassium 3.7 mmol/L (3.5-5.1); Sodium 137 mmol/L (135-145); eGFR > 60.00
[2023-04-24] MEDS: NSS (PRESERVATIVE FREE) 10 ML IV (07:43)
[2023-04-24] MEDS: PROTONIX IV 40 MG IV (07:43)
[2023-04-24] MEDS: DILAUDID 0.5 MG IV ×4 (08:35→22:34)
--- NOTE | 2023-04-24 11:25 | W.PN.CRS1 ---
Today's Communication / Plan
-
NGT to LIWS
TPN
Assessment/Plan
-
77-year-old male with PMH of A-fib (not on AC), HTN, stage III CKD and perforated diverticulitis with Bergman's procedure in 11/2022, presents for elective surgery
POD#9 robotic colostomy reversal
Delayed return of bowel function. Repeat CT on 04/20 with pSBO secondary to adhesion, following non-operatively with bowel rest/decompression
Await bowel recovery
PO Cardizem/Metoprolol changed to IV while NPO, Hospitalist following
AFVSS
Labs stable
1.� Continue TPN via PICC, adjustments made to tonight's bag as per nutrition recs. Also, increased volume to 1500ml/24h. Will d/c LR once new bag hanging.
2.� NGT to LIWS
3.� Continue prn analgesics
4.� Continue DVT PPx with Lovenox/SCD's
5.� Out of bed as tolerated, PT following
6. Continue with DIMITRI drain to bulb suction
Subjective Data
Procedure
Robotic colostomy takedown on 04/15/2023
Subjective Data
Date of Service: April 24, 2023
Patient seen and examined at bedside with Dr. Smith. Denies n/v. Passed some flatus and a small blood tinged stool. Abdominal discomfort improving.
Objective Data
-
Vital Signs
Temp Pulse Resp BP Pulse Ox
98 F 93 18 137/92 97
04/24/23 07:35 04/24/23 07:35 04/24/23 07:35 04/24/23 07:35 04/24/23 07:35
Intake & Output
04/23/23 04/24/23 04/25/23
06:59 06:59 06:59
Intake Total 1140 / 1140 1510 / 1510
Output Total 1695 / 1695 930 / 930
Balance -555 / -555 580 / 580
Intake:
IV fluids (Total) 990 / 990 960 / 960
TPN/PPN 370 / 370
Amount instilled into GI Tube ( 150 / 150 180 / 180
Total)
[place] Sump 150 / 150 180 / 180
Output:
Drain Output (Total) /
Right Lower Abdomen Jacek- /
Bell
Gastrointestinal tube output ( 700 / 700 500 / 500
Total)
[place] Sump 700 / 700 500 / 500
Urine, Voided 800 / 800 125 / 125
Other:
Number of approximated SMALL 2
amounts of urine
Number of approximated MODERATE 2
amounts of urine
Lab Results
04/24/23 06:11
04/24/23 06:11
Physical Exam
-
General: No Acute Distress and AOx3
Abdomen: Soft, Distended (mild), Tender (Mild around incisions) and Other (NGT with bilious outputs)
Wound: Other (DIMITRI with light SSF)
Incision: Clear, Dry, Intact
[2023-04-24 11:30] VITALS: BP 138/84
[2023-04-24 11:58] LABS: Glucose - Point of Care 137 mg/dl (70-99)
--- NOTE | 2023-04-24 13:02 | W.PN.HOSP.TC ---
Today's Communication/Plan
-
Colorectal primary
follow tele, continue drip until cleared for PO
Assessment / Plan
Assessment / Plan
IMPRESSION:�
Status post colostomy takedown.
Complicated diverticulitis with bowel resection and colostomy.� (Gomez procedure 11/09/2022)
Postoperative ileus
Other conditions:
Short episode/self-limited postoperative A-fib.
NSVT.
CKD stage IIIa.
Essential hypertension
Dyslipidemia
PLAN:
NG tube in place awaiting return of bowel function
Repeat CT scan and x-ray consistent with persistent small bowel obstruction.
TPN started
continue pain control
Remains in sinus rhythm with normal rate
Monitor for recurrent A-fib
Has been off oral medications including diltiazem and metoprolol.
Continue Cardizem drip currently at 2.5 mg an hour.
Follow electrolytes.
Chronic kidney disease stage IIIa.
Creatinine at baseline
DVT ppx: Lovenox/SCDss
Code: Full
Anticipated Discharge: > 48 hours
Subjective/Interval History
-
Date of Service: April 24, 2023
passing flatus, no n/v
abd pain improving
Objective Data
-
Labs:
Laboratory Results
04/24/23
06:11
WBC 6.6
Hgb 14.3
Hct 42.3
Plt Count 208
Sodium 137
Potassium 3.7
Chloride 108 H
Carbon Dioxide 27
BUN 28 H
Creatinine 1.1
Glucose 141 H
Calcium 8.3 L
Vital Signs:
Vital Signs
Temp Pulse Resp BP Pulse Ox
97.6 F 84 18 138/84 96
04/24/23 11:30 04/24/23 11:30 04/24/23 11:30 04/24/23 11:30 04/24/23 11:30
I&O
04/23/23 04/24/23 04/25/23
06:59 06:59 06:59
Intake Total 1140 / 1140 1510 / 1510
Output Total 1695 / 1695 930 / 930
Balance -555 / -555 580 / 580
Physical Exam
-
General: No Apparent Distress
HEENT: Normocephalic and Atraumatic
Cardiac: Regular Rhythm and S1/S2
GI: Soft
Neuro: AO x 3
Psych: Calm
Data Reviewed
-
Total Time Spent with Patient (in minutes): 41
Labs: Labs Reviewed by me
[2023-04-24 15:53] VITALS: BP 141/93
[2023-04-24] MEDS: LOVENOX 40 MG SC (17:29)
[2023-04-24 17:54] LABS: Glucose - Point of Care 128 mg/dl (70-99)
[2023-04-24 19:10] VITALS: BP 141/88
[2023-04-24] MEDS: Parenteral Nutrition, Central 1500 IV (20:59)
[2023-04-24 23:45] VITALS: BP 128/90
[2023-04-24 23:49] LABS: Glucose - Point of Care 153 mg/dl (70-99)
[2023-04-25 03:40] VITALS: BP 146/95
[2023-04-25] MEDS: DILAUDID 0.5 MG IV ×4 (04:07→20:12)
[2023-04-25] MEDS: APRESOLINE 5 MG IV ×2 (04:18→20:13)
[2023-04-25 06:00] VITALS: BMI 23.3
[2023-04-25 06:03] LABS: Glucose - Point of Care 138 mg/dl (70-99)
[2023-04-25 06:03] LABS: Hematocrit 42.2 % (39.0-52.0); Hemoglobin 14.2 g/dL (13.0-18.0); Mean Corp Hgb Conc. 33.6 g/dL (33.0-37.0); Mean Corpuscular Hgb 29.3 pg (27.0-31.0); Mean Corpuscular Volume 87.2 fL (80.0-94.0); Mean Platelet Volume 12.4 fL (7.4-10.4); Platelet Count 200 10^3/uL (130-400); Red Blood Cell Count 4.84 10^6/uL (4.70-6.10); White Blood Cell Count 6.8 10^3/uL (4.8-10.8)
[2023-04-25 06:14] LABS: Blood Urea Nitrogen 26 mg/dl (9-20); Calcium 8.5 mg/dl (8.4-10.2); Carbon Dioxide 27 mmol/L (22-30); Chloride 108 mmol/L (98-107); Estimated Creatinine Clearance 70 ml/min; Glucose 155 mg/dl (70-99); Magnesium 2.3 mg/dl (1.6-2.3); Phosphorus 2.9 mg/dl (2.5-4.5); Potassium 3.4 mmol/L (3.5-5.1); Sodium 140 mmol/L (135-145); eGFR > 60.00
[2023-04-25 07:45] VITALS: BP 143/75
[2023-04-25] MEDS: POTASSIUM PHOSPHATE 259.090899999999976 MEQ IV (09:59)
[2023-04-25] MEDS: NSS (PRESERVATIVE FREE) 10 ML IV (10:01)
[2023-04-25] MEDS: CARDIZEM 125 IV (10:02)
[2023-04-25] MEDS: PROTONIX IV 40 MG IV (10:02)
[2023-04-25 11:15] VITALS: BP 129/80
--- NOTE | 2023-04-25 11:42 | W.PN.CRS1 ---
Today's Communication / Plan
-
TPN renewed
NPO/NGT
SBFT in am
Assessment/Plan
-
77-year-old male with PMH of A-fib (not on AC), HTN, stage III CKD and perforated diverticulitis with Bergman's procedure in 11/2022, presents for elective surgery
POD#10 robotic colostomy reversal
Delayed return of bowel function. Repeat CT on 04/20 with pSBO secondary to adhesions, following non-operatively with bowel rest/decompression
Await bowel recovery
PO Cardizem/Metoprolol changed to IV while NPO, Hospitalist following
AFVSS
Labs stable, mild hypokalemia secondary to GI losses
1.� Continue TPN, electrolytes replaced
2.� NGT to LIWS
3.� Continue prn analgesics
4.� Continue DVT PPx with Lovenox/SCD's
5.� Out of bed as tolerated, PT following
6. Continue with DIMITRI drain to bulb suction
7. Plan SBFT in AM
Subjective Data
Procedure
Robotic colostomy takedown on 04/15/2023
Subjective Data
Date of Service: April 25, 2023
Patient seen and examined at bedside. Denies nausea or vomiting. No flatus or stool passage today. Denies significant pain.
Objective Data
-
Vital Signs
Temp Pulse Resp BP Pulse Ox
97.3 F 93 18 129/80 97
04/25/23 11:15 04/25/23 11:15 04/25/23 11:15 04/25/23 11:15 04/25/23 11:15
Intake & Output
04/24/23 04/25/23 04/26/23
06:59 06:59 06:59
Intake Total 1510 / 1510 2958 / 2958
Output Total 930 / 930 900 / 900
Balance 580 / 580 2057
Intake:
IV fluids (Total) 960 / 960 1600 / 1600
IV piggybacks 60 / 60
TPN/PPN 370 / 370 1148 / 1148
Amount instilled into GI Tube ( 180 / 180 150 / 150
Total)
[place] Sump 180 / 180 150 / 150
Output:
Drain Output (Total) 305 / 305 480 / 480
Right Lower Abdomen Jacek- 305 / 305 480 / 480
Bell
Gastrointestinal tube output ( 500 / 500 420 / 420
Total)
[place] Sump 500 / 500 420 / 420
Urine, Voided 125 / 125
Other:
Number of approximated SMALL 2 1
amounts of urine
Number of approximated MODERATE 2 3
amounts of urine
Lab Results
04/25/23 05:31
04/25/23 05:31
Physical Exam
-
General: No Acute Distress and AOx3
Abdomen: Soft, Distended (mild), Tender (Mild around incisions) and Other (NGT with bilious outputs)
Wound: Other (DIMITRI with light SSF)
Incision: Clear, Dry, Intact
[2023-04-25 11:54] LABS: Glucose - Point of Care 144 mg/dl (70-99)
--- NOTE | 2023-04-25 13:43 | W.PN.HOSP.TC ---
Today's Communication/Plan
-
Colorectal primary
follow tele, continue Cardizem drip until cleared for PO
Assessment / Plan
Assessment / Plan
IMPRESSION:�
Status post colostomy takedown.
Complicated diverticulitis with bowel resection and colostomy.� (Gomez procedure 11/09/2022)
Postoperative ileus
Other conditions:
Short episode/self-limited postoperative A-fib.
NSVT.
CKD stage IIIa.
Essential hypertension
Dyslipidemia
PLAN:
NG tube in place awaiting return of bowel function
Repeat CT scan and x-ray consistent with persistent small bowel obstruction.
TPN started; monitor electrolytes and replace as needed
continue pain control
SBFT in AM
Remains in sinus rhythm with normal rate
Monitor for recurrent A-fib
Has been off oral medications including diltiazem and metoprolol.
Continue Cardizem drip currently at 2.5 mg an hour.
Follow electrolytes.
Chronic kidney disease stage IIIa.
Creatinine at baseline
DVT ppx: Lovenox/SCDss
Code: Full
Anticipated Discharge: > 48 hours
Subjective/Interval History
-
Date of Service: April 25, 2023
no n/v, no flatus/stool
remains rate controlled, sinus
Objective Data
-
Labs:
Laboratory Results
04/25/23
05:31
WBC 6.8
Hgb 14.2
Hct 42.2
Plt Count 200
Sodium 140
Potassium 3.4 L
Chloride 108 H
Carbon Dioxide 27
BUN 26 H
Creatinine 0.9
Glucose 155 H
Calcium 8.5
Vital Signs:
Vital Signs
Temp Pulse Resp BP Pulse Ox
97.3 F 93 18 129/80 97
04/25/23 11:15 04/25/23 11:15 04/25/23 11:15 04/25/23 11:15 04/25/23 11:15
I&O
04/24/23 04/25/23 04/26/23
06:59 06:59 06:59
Intake Total 1510 / 1510 2958 / 2958
Output Total 930 / 930 900 / 900
Balance 580 / 580 2057
Physical Exam
-
General: No Apparent Distress
HEENT: Normocephalic
Respiratory: Negative Wheezes or Rales
Cardiac: Regular Rhythm and S1/S2
GI: Soft and Nontender
Musculoskeletal: No Edema
Neuro: AO x 3
Psych: Calm
Data Reviewed
-
Total Time Spent with Patient (in minutes): 45
Labs: Labs Reviewed by me
[2023-04-25 15:20] VITALS: BP 131/89
[2023-04-25] MEDS: LOVENOX 40 MG SC (18:38)
[2023-04-25 19:17] VITALS: BP 142/90
[2023-04-25] MEDS: Parenteral Nutrition, Central 1500 IV (21:40)
[2023-04-25 22:37] VITALS: BP 119/87
[2023-04-26 00:08] LABS: Glucose - Point of Care 137 mg/dl (70-99)
[2023-04-26 02:42] VITALS: BP 131/94
[2023-04-26] MEDS: DILAUDID 0.5 MG IV ×6 (03:13→23:42)
[2023-04-26 05:45] VITALS: BMI 23.3
[2023-04-26 05:57] LABS: Glucose - Point of Care 121 mg/dl (70-99)
[2023-04-26] MEDS: NSS (PRESERVATIVE FREE) 10 ML IV (07:46)
[2023-04-26] MEDS: PROTONIX IV 40 MG IV (07:48)
[2023-04-26 08:10] VITALS: BP 133/88
[2023-04-26 08:40] LABS: Hematocrit 43.9 % (39.0-52.0); Hemoglobin 14.9 g/dL (13.0-18.0); Mean Corp Hgb Conc. 33.9 g/dL (33.0-37.0); Mean Corpuscular Hgb 29.9 pg (27.0-31.0); Mean Platelet Volume 12.6 fL (7.4-10.4); Platelet Count 196 10^3/uL (130-400); Red Blood Cell Count 4.99 10^6/uL (4.70-6.10); Red Cell Dist. Width 14.5 % (11.5-14.5); White Blood Cell Count 8.3 10^3/uL (4.8-10.8)
[2023-04-26 09:01] LABS: ALT (SGPT) 54 U/L (0-50); AST (SGOT) 43 U/L (17-59); Albumin 2.6 g/dl (3.5-5.0); Alkaline Phosphatase 60 U/L (38-126); Blood Urea Nitrogen 27 mg/dl (9-20); Calcium 8.8 mg/dl (8.4-10.2); Carbon Dioxide 28 mmol/L (22-30); Chloride 108 mmol/L (98-107); Estimated Creatinine Clearance 63 ml/min; Glucose 151 mg/dl (70-99); Magnesium 2.4 mg/dl (1.6-2.3); Phosphorus 3.6 mg/dl (2.5-4.5); Potassium 3.9 mmol/L (3.5-5.1); Sodium 140 mmol/L (135-145); Total Bilirubin 0.9 mg/dl (0.2-1.3); Total Protein 5.1 g/dl (6.3-8.2); Triglycerides 133 mg/dl (10-149); eGFR > 60.00
--- NOTE | 2023-04-26 10:14 | CM ---
Reviewed the chart notes. Patient ordered SBFT for this morning. Continues with NPO status, NGT, and TPN. Patient ambulatory in hallways without assisted device. CM continues to be available to patient/family and is monitoring medical plan for
needs at discharge.
Plan: Discharge to home when medically stable. No needs anticipated at this time.
--- NOTE | 2023-04-26 10:30 | W.PN.HOSP.TC ---
Addendum entered and electronically signed by Jun Garcia MD 04/26/23 16:13:
Patient seen and examined
Discussed with resident
Impression/plan:
Status post colostomy takedown with postoperative ileus.
Remains with NG tube
Exam with hypoactive bowel sounds
For small bowel follow-through today
Remains n.p.o. on TPN
Follow electrolytes
Cardiovascular.
Hypertension, NSVT remains on IV Cardizem.
Original Note:
Today's Communication/Plan
-
Small Bowel follow through scheduled for today
Output through NG tube
Continue Cardizem drip
Monitor BMP
Pain control
Assessment / Plan
Assessment / Plan
IMPRESSION:�
Status post colostomy takedown.
Complicated diverticulitis with bowel resection and colostomy.� (Gomez procedure 11/09/2022)
Postoperative ileus
Other conditions:
Short episode/self-limited postoperative A-fib.
NSVT.
CKD stage IIIa.
Essential hypertension
Dyslipidemia
PLAN:
NG tube in place awaiting return of bowel function
Repeat CT scan and x-ray consistent with persistent small bowel obstruction.
TPN started; monitor electrolytes and replace as needed
continue pain control
SBFT in AM
Remains in sinus rhythm with normal rate
Monitor for recurrent A-fib
Has been off oral medications including diltiazem and metoprolol.
Continue Cardizem drip currently at 2.5 mg an hour.
Follow electrolytes.
Chronic kidney disease stage IIIa.
Creatinine at baseline
DVT ppx: Lovenox/SCDss
Code: Full
Anticipated Discharge: > 48 hours
Subjective/Interval History
-
Date of Service: April 26, 2023
Objective Data
-
Labs:
Laboratory Results
04/26/23
07:58
WBC 8.3
Hgb 14.9
Hct 43.9
Plt Count 196
Sodium 140
Potassium 3.9
Chloride 108 H
Carbon Dioxide 28
BUN 27 H
Creatinine 1.0
Glucose 151 H
Calcium 8.8
Total Bilirubin 0.9
AST 43
ALT 54 H
Alkaline Phosphatase 60
Vital Signs:
Vital Signs
Temp Pulse Resp BP Pulse Ox
97.9 F 94 17 133/88 96
04/26/23 08:10 04/26/23 08:10 04/26/23 08:10 04/26/23 08:10 04/26/23 08:10
I&O
04/25/23 04/26/23 04/27/23
06:59 06:59 06:59
Intake Total 2958 / 2958 1136 / 1136
Output Total 900 / 900 1275 / 1275 40 / 40
Balance 2057 / 2057 -139 / -139 -40 / -40
Physical Exam
-
General: No Apparent Distress
HEENT: Normocephalic
Respiratory: Negative Wheezes or Rales
Cardiac: Regular Rhythm and S1/S2
GI: Soft and Nontender
Musculoskeletal: No Cyanosis and No Edema
Neuro: Awake, Alert, Oriented and AO x 3
Psych: Calm
Data Reviewed
-
Labs: Labs Reviewed by me and Discussed with Physician
--- NOTE | 2023-04-26 13:20 | W.PN.CRS1 ---
Today's Communication / Plan
-
Small bowel follow-through
Continue NG tube and TPN
Assessment/Plan
-
77-year-old male with PMH of A-fib (not on AC), HTN, stage III CKD and perforated diverticulitis with Bergman's procedure in 11/2022, presents for elective surgery
POD#11 robotic colostomy reversal
1.� Continue TPN, NG tube in place.
2.� Labs and vitals normal.
3.� Continue prn analgesics.
4.� Continue DVT PPx with Lovenox/SCD's.
5.� Out of bed as tolerated, PT following.
6.� Continue with DIMITRI drain to bulb suction.
7.� Small bowel follow-through today. Plans from there.
Subjective Data
Procedure
Robotic colostomy takedown on 04/15/2023
Subjective Data
Date of Service: April 26, 2023
Patient states he does not have any flatus or bowel movements. He has been walking. He feels a little distended.
Objective Data
-
Vital Signs
Temp Pulse Resp BP Pulse Ox
97.9 F 94 17 133/88 96
04/26/23 08:10 04/26/23 08:10 04/26/23 08:10 04/26/23 08:10 04/26/23 08:10
Intake & Output
04/25/23 04/26/23 04/27/23
06:59 06:59 06:59
Intake Total 2958 / 2958 1136 / 1136
Output Total 900 / 900 1275 / 1275 40 / 40
Balance 2057 -139 / -139 -40 / -40
Intake:
IV fluids (Total) 1600 / 1600
IV piggybacks 60 / 60 260 / 260
TPN/PPN 1148 / 1148 756 / 756
Amount instilled into GI Tube ( 150 / 150 120 / 120
Total)
[place] Sump 150 / 150 120 / 120
Output:
Drain Output (Total) 480 / 480 515 / 515
Right Lower Abdomen Jacek- 480 / 480 515 / 515
Bell
Gastrointestinal tube output ( 420 / 420 60 / 60 40 / 40
Total)
[place] Sump 420 / 420 60 / 60 40 / 40
Urine, Voided 700 / 700
Other:
Number of approximated SMALL 1
amounts of urine
Number of approximated MODERATE 3
amounts of urine
Lab Results
04/26/23 07:58
04/26/23 07:58
Physical Exam
-
General: No Acute Distress and AOx3
Abdomen: Soft, Distended (Mild), Non Tender and Other (DIMITRI drain serous)
Wound: Dressing Changed
Incision: Clear, Dry, Intact
[2023-04-26 13:36] LABS: Glucose - Point of Care 155 mg/dl (70-99)
[2023-04-26 15:30] VITALS: BP 142/87
[2023-04-26 17:44] LABS: Glucose - Point of Care 170 mg/dl (70-99)
[2023-04-26] MEDS: LOVENOX 40 MG SC (18:28)
[2023-04-26] MEDS: ZOFRAN 4 MG IV (18:31)
--- NOTE | 2023-04-26 19:00 | PTCARENOTE ---
Previous shift reports NGT output = 1000 mL when reconnected to suction.
[2023-04-26 19:55] VITALS: BP 116/82
[2023-04-26] MEDS: Parenteral Nutrition, Central 1500 IV (21:45)
[2023-04-26 22:57] VITALS: BP 108/72
[2023-04-26 23:54] LABS: Glucose - Point of Care 137 mg/dl (70-99)
[2023-04-27] VITALS (19 sets, daily range): BP systolic 113–164; BP diastolic 66–90; BMI 22.2
[2023-04-27] MEDS: DILAUDID 0.5 MG IV ×2 (04:05→17:23)
[2023-04-27] MEDS: FLUSH (NSS) 1 FLUSH IV (04:06)
[2023-04-27 05:34] LABS: % Basophils 0.2 % (0-2); % Eosinophils 0.3 % (0-6); % Monocytes 4.8 % (1.7-9.3); % Neutrophils 86.7 % (42.2-75.2); Absolute Eosinophils 0.1 10^3/uL (0-0.7); Absolute Immature Granulocytes 0.2 10^3/uL (0-0.05); Absolute Lymphocytes 1.1 10^3/uL (1.2-3.4); Absolute Monocytes 0.8 10^3/uL (0.1-0.6); Absolute Neutrophils 13.9 10^3/uL (1.4-6.5); Hematocrit 46.5 % (39.0-52.0); Hemoglobin 15.4 g/dL (13.0-18.0); Mean Corp Hgb Conc. 33.1 g/dL (33.0-37.0); Mean Corpuscular Hgb 29.5 pg (27.0-31.0); Mean Corpuscular Volume 89.1 fL (80.0-94.0); Mean Platelet Volume 12.6 fL (7.4-10.4); Nucleated Red Blood Cells % 0 % (-); Platelet Count 196 10^3/uL (130-400); Red Blood Cell Count 5.22 10^6/uL (4.70-6.10); Red Cell Dist. Width 14.7 % (11.5-14.5)
[2023-04-27 05:47] LABS: Glucose - Point of Care 133 mg/dl (70-99)
[2023-04-27 06:03] LABS: Blood Urea Nitrogen 40 mg/dl (9-20); Calcium 9.3 mg/dl (8.4-10.2); Carbon Dioxide 29 mmol/L (22-30); Chloride 110 mmol/L (98-107); Estimated Creatinine Clearance 43 ml/min; Glucose 138 mg/dl (70-99); Potassium 4.2 mmol/L (3.5-5.1); Sodium 141 mmol/L (135-145); eGFR 51.77
[2023-04-27] MEDS: PROTONIX IV 40 MG IV (07:50)
[2023-04-27] MEDS: NSS (PRESERVATIVE FREE) 10 ML IV (07:50)
--- NOTE | 2023-04-27 09:35 | W.PN.CRS1 ---
Addendum entered and electronically signed by Aron Smith MD 04/27/23 16:30:
I saw and examined the patient.
The PA's note was reviewed and I agree with the note.
Comment:
Seen in am with PA.
No flatus or BMs. Some emesis around NGT yesterday.
Afebrile; on cardizem gtts for atrial fibrillation. WBC up to 16. Creatinine up to 1.3.
Abdomen distended and nontender. Incisions looked fine.
SBFT yesterday showed persistent obstruction of SB. No improvement. Also leukocytosis. Discussed situation and recommended exploratory laparotomy for small bowel obstruction. Risks and benefits discussed. Risks covered included but not limited
to bleeding, infection, organ injury, hernia, potential for partial bowel resection; potential for stoma; potential for anastomotic issues, and anesthetic risks. Patient agreed to proceed.
Original Note:
Today's Communication / Plan
-
OR today
Assessment/Plan
-
77-year-old male with PMH of A-fib (not on AC), HTN, stage III CKD and perforated diverticulitis with Bergman's procedure in 11/2022, presents for elective surgery
POD#12 robotic colostomy reversal
1.� Continue TPN, NG tube in place.
2.� Vitals normal. WBC 16.0, up from 8.3.
3.� Continue prn analgesics.
4.� Continue DVT PPx with Lovenox/SCD's.
5.� Out of bed as tolerated, PT following.
6.� DIMITRI drain removed yesterday.
7.� Given persistent SBO and leukocytosis, decision made for OR today. Discussed with patient. Likely OR to start around 12:30. Pre-op Invanz ordered. Lovenox held.
Subjective Data
Procedure
Robotic colostomy takedown on 04/15/2023
Subjective Data
Date of Service: April 27, 2023
Patient states he is less distended today. He has lesss pain. He still has no bowel movements or flatus
Objective Data
-
Vital Signs
Temp Pulse Resp BP Pulse Ox
98.5 F 89 16 130/86 95
04/27/23 07:41 04/27/23 07:41 04/27/23 07:41 04/27/23 07:41 04/27/23 07:41
Intake & Output
04/26/23 04/27/23 04/28/23
06:59 06:59 06:59
Intake Total 1136 / 1136 1680 / 1680
Output Total 1275 / 1275 4160 / 4160 200 / 200
Balance -139 / -139 -2480 / -2480 -200 / -200
Intake:
IV piggybacks 260 / 260
TPN/PPN 756 / 756 1500 / 1500
Amount instilled into GI Tube ( 120 / 120 180 / 180
Total)
[place] Sump 120 / 120 180 / 180
Output:
Emesis 500 / 500
Drain Output (Total) 515 / 515 70 / 70
Right Lower Abdomen Jacek- 515 / 515 70 / 70
Bell
Gastrointestinal tube output ( 60 / 60 2690 / 2690 200 / 200
Total)
[place] Sump 60 / 60 2690 / 2690 200 / 200
Urine, Voided 700 / 700 900 / 900
Lab Results
04/27/23 05:06
04/27/23 05:06
Physical Exam
-
General: No Acute Distress
Abdomen: Soft, Distended (mild) and Non Tender
Incision: Clear, Dry, Intact
[2023-04-27 10:16] LABS: Lactic Acid 1.3 mmol/L (0.7-2.0)
--- NOTE | 2023-04-27 10:26 | W.PN.HOSP.TC ---
Addendum entered and electronically signed by Jun Garcia MD 04/27/23 14:14:
Patient seen and examined
Discussed with resident.
Impression/plan:
Status post colostomy takedown with prolonged postoperative ileus/SBO
Clinically no return of bowel function while NG tube in place
Follow-up imaging consistent with persistent SBO.
Exam with persistent hypoactive bowel sounds and distended abdomen
Noted elevated white count, rising creatinine while on TPN. Normal lactic acid level.
Back to the OR today
Okay to hold Cardizem
Original Note:
Today's Communication/Plan
-
Persistent Small Bowel Obstruction, Leukocytosis, Bun/Cre Rising
Patient scheduled for surgery today.
Assessment / Plan
Assessment / Plan
IMPRESSION:�
Status post colostomy takedown.
Complicated diverticulitis with bowel resection and colostomy.� (Gomez procedure 11/09/2022)
Postoperative ileus
Other conditions:
Short episode/self-limited postoperative A-fib.
NSVT.
CKD stage IIIa.
Essential hypertension
Dyslipidemia
PLAN:
NG tube in place awaiting return of bowel function
Repeat CT scan and x-ray consistent with persistent small bowel obstruction.
TPN started; monitor electrolytes and replace as needed
Small Bowel follow-through Findings suggesting small bowel obstruction.
Remains n.p.o.
Remains in sinus rhythm with normal rate
Monitor for recurrent A-fib
Has been off oral medications including diltiazem and metoprolol.
Continue Cardizem drip
Follow electrolytes.
Chronic kidney disease stage IIIa.
Creatinine at baseline
DVT ppx: Lovenox/SCDss
Code: Full
Anticipated Discharge: > 48 hours
Subjective/Interval History
-
Date of Service: April 27, 2023
Objective Data
-
Labs:
Laboratory Results
04/27/23
05:06
WBC 16.0 H
Hgb 15.4
Hct 46.5
Plt Count 196
Sodium 141
Potassium 4.2
Chloride 110 H
Carbon Dioxide 29
BUN 40 H
Creatinine 1.4 H
Glucose 138 H
Calcium 9.3
Vital Signs:
Vital Signs
Temp Pulse Resp BP Pulse Ox
98.5 F 89 16 130/86 95
04/27/23 07:41 04/27/23 07:41 04/27/23 07:41 04/27/23 07:41 04/27/23 07:41
I&O
04/26/23 04/27/23 04/28/23
06:59 06:59 06:59
Intake Total 1136 / 1136 1680 / 1680
Output Total 1275 / 1275 4160 / 4160 200 / 200
Balance -139 / -139 -2480 / -2480 -200 / -200
Physical Exam
-
General: Other (no acute distress)
Respiratory: Negative Wheezes or Rales
Cardiac: Regular Rhythm and S1/S2
GI: Soft and Distended
Musculoskeletal: No Cyanosis and No Edema
Neuro: Awake, Alert, Oriented and AO x 3
Psych: Calm
[2023-04-27 11:57] LABS: Glucose - Point of Care 130 mg/dl (70-99)
[2023-04-27 13:14] LABS: Glucose - Point of Care 130 mg/dl (70-99)
--- NOTE | 2023-04-27 13:45 | CM ---
Reviewed the chart notes. Patient is scheduled for OR today for sbo. NGT remains. TPN continues. CM continues to be available to patient/family and is monitoring medical plan for needs at discharge.
Plan: Discharge plans will now depend on outcome of surgery.
[2023-04-27 15:15] LABS: Glucose - Point of Care 168 mg/dl (70-99)
--- NOTE | 2023-04-27 16:15 | SUR.PHASEI ---
Pt received to PACU from OR with Cardizem gtt at 2.5mg IV as ordered and TPN at 63ml/hr infusing through right upper arm PICC.
--- NOTE | 2023-04-27 16:30 | SUR.PHASEI ---
Pt received to PACU from OR with hematoma to right of Aquacell dressing to abdomen. Dr. Smith at pt bedside to evaluate. Ice bag placed on top of pt gown at hematoma site per Dr. Smith.
--- NOTE | 2023-04-27 16:31 | W.IMMPOSTOP ---
Addendum entered and electronically signed by Aron Smith MD 04/28/23 15:27:
Of note, Dr. Quinton Liang did the flexible sigmoidoscopy and thus was an outpatient physical therapist assistant.
Addendum entered and electronically signed by Aron Smith MD 04/27/23 16:47:
Patient's updated via phone conversation
Original Note:
Surgical Immed Post Op Note
-
Primary Surgeon: Nena Smith MD
Assisting Surgeon: ADILENE Means; ADILENE Gifford
Pre-op Diagnosis: small bowel obstruction
Post-op Diagnosis: same
Procedure Performed: 1) exploratory laparotomy 2) lysis of adhesions 3) partial small bowel resection 4) flexible sigmoidoscopy
Anesthesia Type: general plus local
Specimen / Cultures: portion of ileum (?15 cm) to include transition point and a Meckel's diverticulum
Estimated Blood Loss: 50 cc
Complications: right abdominal wall hematoma noted in RR (likely from injection of abdominal wall of local at end of case)
Operative Findings: 1) (?adhesive) small bowel obstruction with obvious ileal transition point right next to a Meckel's diverticulum 2) multiple small bowel adhesions 3) intact pelvic anastomosis confirmed on flexible sigmoidoscopy and via air leak
test.
NGT confirmed to be in stomach.
Lund placed in bladder.
Will send to IMU.
[2023-04-27] MEDS: DILAUDID 0.25 MG IV ×4 (16:40→17:05)
--- NOTE | 2023-04-27 17:42 | PTCARENOTE ---
pt transferred to OR at 1230 via bed. room changed after surgery. all personal belongings packed and sent to IMU RM [id number].
--- NOTE | 2023-04-27 18:17 | PTCARENOTE ---
Addendum entered by Simran Reilly RN 04/27/23 18:30:
RDL PICC with TPN infusing, IV Cardizem gtt at 2.5mg/hr.
Original Note:
Received from PACU, AAO, c/o 'spasm' pain throughout abdomen 08/17. IMU monitors placed- ST/ PACs 95 139/79 RR12 100% Rair. NGT patent right nare- to LIS. Aquacell dressing marked for small drainage. LLQ Dressing cdi. RLQ hematoma marked- soft.
Lund patent. SCDs/ Teds intact. Call hearn in reach. Pt has glasses and phone bedside. No needs presently.
[2023-04-27] MEDS: OFIRMEV 100 IV (21:05)
[2023-04-27] MEDS: Parenteral Nutrition, Central 1500 IV (21:15)
[2023-04-27] MEDS: DILAUDID 1 MG IV (21:52)
[2023-04-27 23:07] LABS: Glucose - Point of Care 161 mg/dl (70-99)
[2023-04-28] VITALS (13 sets, daily range): BP systolic 121–154; BP diastolic 79–96; PULSE 89; BMI 23.0
[2023-04-28] MEDS: DILAUDID 1 MG IV ×6 (03:03→23:07)
[2023-04-28] MEDS: OFIRMEV IV (03:09)
[2023-04-28 06:10] LABS: Glucose - Point of Care 138 mg/dl (70-99)
--- NOTE | 2023-04-28 06:17 | PTCARENOTE ---
A/O x4. Soft spoken. Abd dressing with drainage marked. R abd hematoma, soft and nontender to palpation. hypoBS. Prn Dilaudid for pain per pt request. Abd muscle spasms continue intermittently up to 9/10 pain. NGT to LIWS; 250mL brown output.
Irrigated x2 to maintain patency. Lund catheter draining clear yellow urine at bedside. PICC line dressing intact; TPN in one lumen, Cardizem gtt in the other lumen infusing tolerating well. Tele showing NSR. Encouraged pt to reposition self while
in bed to prevent skin breakdown. Offered to turn pt or change linens underneath, pt refused. SCDs / TEDs on. Call hearn within reach. Pt calls appropriately and able to make needs known.
[2023-04-28 06:29] LABS: % Basophils 0.1 % (0-2); % Immature Granulocytes 0.7 % (0-0.5); % Monocytes 2.8 % (1.7-9.3); % Neutrophils 93.4 % (42.2-75.2); Absolute Immature Granulocytes 0.1 10^3/uL (0-0.05); Absolute Lymphocytes 0.5 10^3/uL (1.2-3.4); Absolute Monocytes 0.5 10^3/uL (0.1-0.6); Absolute Neutrophils 16.6 10^3/uL (1.4-6.5); Hematocrit 44.9 % (39.0-52.0); Hemoglobin 14.8 g/dL (13.0-18.0); Mean Corpuscular Hgb 29.5 pg (27.0-31.0); Mean Corpuscular Volume 89.6 fL (80.0-94.0); Mean Platelet Volume 13.3 fL (7.4-10.4); Nucleated Red Blood Cells % 0 % (-); Platelet Count 199 10^3/uL (130-400); Red Blood Cell Count 5.01 10^6/uL (4.70-6.10); Red Cell Dist. Width 14.8 % (11.5-14.5); White Blood Cell Count 17.7 10^3/uL (4.8-10.8)
[2023-04-28 06:57] LABS: Blood Urea Nitrogen 42 mg/dl (9-20); Calcium 8.9 mg/dl (8.4-10.2); Carbon Dioxide 27 mmol/L (22-30); Chloride 107 mmol/L (98-107); Estimated Creatinine Clearance 53 ml/min; Glucose 160 mg/dl (70-99); Potassium 4.8 mmol/L (3.5-5.1); Sodium 140 mmol/L (135-145); eGFR > 60.00
[2023-04-28] MEDS: PROTONIX IV 40 MG IV (08:10)
[2023-04-28] MEDS: NSS (PRESERVATIVE FREE) 10 ML IV (08:10)
[2023-04-28] MEDS: OFIRMEV 100 IV ×2 (08:10→14:55)
--- NOTE | 2023-04-28 09:11 | CM ---
Patient with Dx colostomy takedown with prolonged postoperative ileus/SBO, s/p ex lap/JALEEL, partial SBR, flex sigmoid. Room air. NPO/NGT. TPN. PICC. Receiving Cardizem gtt. PT; no needs.
CM continuing to follow for d/c needs.
Plan home when medically ready.
--- NOTE | 2023-04-28 10:42 | W.PN.HOSP.TC ---
Today's Communication/Plan
-
Continue Cardizem
Monitor Electrolytes
Continue TPN
Assessment / Plan
Assessment / Plan
IMPRESSION:�
Status post colostomy takedown.
Complicated diverticulitis with bowel resection and colostomy.� (Gomez procedure 11/09/2022)
Postoperative ileus
Other conditions:
Short episode/self-limited postoperative A-fib.
NSVT.
CKD stage IIIa.
Essential hypertension
Dyslipidemia
PLAN:
NG tube in place awaiting return of bowel function
Repeat CT scan and x-ray consistent with persistent small bowel obstruction.
TPN started; monitor electrolytes and replace as needed
Small Bowel follow-through Findings suggesting small bowel obstruction.
Remains n.p.o.
Elective exploratory laparotomy, lysis of adhesions, partial small bowel resection performed yesterday
Remains in sinus rhythm with normal rate
Monitor for recurrent A-fib
Has been off oral medications including diltiazem and metoprolol.
Continue Cardizem drip
Follow electrolytes.
Chronic kidney disease stage IIIa.
Creatinine at baseline
DVT ppx: Lovenox/SCDss
Code: Full
Anticipated Discharge: > 48 hours
Subjective/Interval History
-
Date of Service: April 28, 2023
Objective Data
-
Labs:
Laboratory Results
04/28/23
05:58
WBC 17.7 H
Hgb 14.8
Hct 44.9
Plt Count 199
Sodium 140
Potassium 4.8
Chloride 107
Carbon Dioxide 27
BUN 42 H
Creatinine 1.2
Glucose 160 H
Calcium 8.9
Vital Signs:
Vital Signs
Temp Pulse Resp BP Pulse Ox
98 F 88 17 128/87 96
04/28/23 07:44 03/20/24 10:00 04/28/23 10:00 04/28/23 10:00 04/28/23 06:14
I&O
04/27/23 04/28/23 04/29/23
06:59 06:59 06:59
Intake Total 1680 / 1680 115.5 / 115.5
Output Total 4160 / 4160 1250 / 1250
Balance -2480 / -2480 -1134.5 / -1134.5
Physical Exam
-
General: No Apparent Distress
Respiratory: Clear to Auscultation; Negative Wheezes
Cardiac: Regular Rhythm and S1/S2
GI: Soft and Nontender
Musculoskeletal: No Cyanosis
Neuro: Awake, Alert, Oriented and AO x 3
Psych: Calm
--- NOTE | 2023-04-28 11:59 | W.PN.CRS1 ---
Today's Communication / Plan
-
TPN
Continue NG tube
DC Lund
Lovenox
Assessment/Plan
-
77-year-old male with PMH of A-fib (not on AC), HTN, stage III CKD and perforated diverticulitis with Bergman's procedure in 11/2022, presents for elective surgery
POD#13 robotic colostomy reversal, POD#1 lysis of adhesions
1.� Continue TPN, NG tube in place.
2.� Vitals normal. WBC 17.7. Will trend
3.� Continue prn analgesics.
4.� Continue DVT PPx with Lovenox/SCD's.
5.� Out of bed as tolerated, PT following.
6.� Patient is on a Dilaudid PROOF PLATE MAKER. During rounds it was decided that it would be discontinued, however, patient reports pain is much more controlled for now after rounding..
7. Discontinue Lund
Subjective Data
Procedure
Robotic colostomy takedown on 04/15/2023
Subjective Data
Date of Service: April 28, 2023
Patient states he is in a lot of pain this morning. He has no nausea or vomiting. His complaint is mainly on the right side. He has no bowel movements or flatus yet.
Objective Data
-
Vital Signs
Temp Pulse Resp BP Pulse Ox
98.0 F 88 17 128/87 96
04/28/23 11:00 04/28/23 10:00 04/28/23 10:00 04/28/23 10:00 04/28/23 06:14
Intake & Output
04/27/23 04/28/23 04/29/23
06:59 06:59 06:59
Intake Total 1680 / 1680 115.5 / 115.5
Output Total 4160 / 4160 1250 / 1250
Balance -2480 / -2480 -1134.5 / -1134.5
Intake:
IV fluids (Total) 2.5 / 2.5
Cardizem 2.5 / 2.5
TPN/PPN 1500 / 1500 63 / 63
Amount instilled into GI Tube ( 180 / 180 50 / 50
Total)
[place] Sump 180 / 180 50 / 50
Output:
Emesis 500 / 500
Drain Output (Total) 70 / 70
Right Lower Abdomen Jacek- 70 / 70
Bell
Gastrointestinal tube output ( 2690 / 2690 700 / 700
Total)
[place] Sump 2690 / 2690 700 / 700
Urine, Lund 100 / 100
Urine, Voided 900 / 900 450 / 450
Lab Results
04/28/23 05:58
04/28/23 05:58
Physical Exam
-
General: No Acute Distress and AOx3
Abdomen: Soft, Non Distended and Tender (Diffuse throughout more prominently on the right)
Skin: Warm and Dry
[2023-04-28 12:10] LABS: Glucose - Point of Care 141 mg/dl (70-99)
--- NOTE | 2023-04-28 12:39 | PTCARENOTE ---
Patient initially c/o of severe pain to abdomen surgery site throughout the night and this morning. Medicated with Dilaudid 1mg per MAR approx 0800. Patient then reported pain was improved. He also worked with PT and is sitting in the chair. Pt
still has R NGT to LIWS, dark green/brown drainage. Lund discontinued. Assessment, care and VS as charted.
--- NOTE | 2023-04-28 13:28 | W.PN.UPDATE ---
Update Note
Progress Note Update
Patient seen and examined
Discussed with resident.
Impression/plan:
Status post colostomy takedown with SBO.
� History of perforated diverticulitis. POD day 13
Status post open laparotomy with adhesion lesions and small bowel resection on 04/26
Past medical history of paroxysmal A-fib not on anticoagulation, hypertension chronic kidney stage IIIa.
NG tube awaiting return of bowel function
Increase activity
TPN
Follow electrolytes
Resume Cardizem drip while off oral beta and calcium channel blockers
[2023-04-28] MEDS: DILAUDID 0.5 MG IV (15:41)
[2023-04-28 17:03] LABS: Glucose - Point of Care 132 mg/dl (70-99)
[2023-04-28] MEDS: LOVENOX 40 MG SC (18:02)
--- NOTE | 2023-04-28 20:58 | PTCARENOTE ---
Received patient in bed, AAOx3, following commands, reporting 8/10 abdominal pain, prn dilaudid given, see MAR for details. Normal sinus/sinus tach, 80s-90s. Cardizem gtt on at 2.5 mg/hr. BP stable, 130s/70s. SCDs on. Room air, saturating 95%, lung
sounds diminished throughout. NPO. Right nare NGT, irrigated with 30 ml tap water Q4, low intermittent suction, brown/green drainage. Urinal to void, yellow urine. Midline aquacell dressing intact, no new drainage. Incisions on right side of abdomen
from previous DIMITRI drain site CDI, DEBBY. Gauze and tape on left side of abdomen, CDI. Ecchymotic on right side, hematoma present. Right DL PICC patent, WNL. Left wrist PIV patent, WNL. Call hearn within reach, patient resting comfortably.
[2023-04-28] MEDS: Parenteral Nutrition, Central 1500 IV (21:42)
--- NOTE | 2023-04-28 23:11 | PTCARENOTE ---
Gave patient more dilaudid for 7/10 pain, see mar for details. Patient reports passing gas. Patient refused to brush his teeth/wash up before bed.
[2023-04-29] VITALS (11 sets, daily range): BP systolic 121–157; BP diastolic 71–95; BMI 23.8
[2023-04-29 00:10] LABS: Glucose - Point of Care 134 mg/dl (70-99)
[2023-04-29] MEDS: CARDIZEM 125 IV (02:30)
[2023-04-29] MEDS: DILAUDID 1 MG IV ×7 (02:30→23:46)
[2023-04-29 04:10] LABS: % Basophils 0.1 % (0-2); % Eosinophils 0.1 % (0-6); % Immature Granulocytes 0.5 % (0-0.5); % Lymphocytes 5.3 % (20.5-51.1); % Monocytes 4.7 % (1.7-9.3); % Neutrophils 89.3 % (42.2-75.2); Absolute Immature Granulocytes 0.1 10^3/uL (0-0.05); Absolute Lymphocytes 0.8 10^3/uL (1.2-3.4); Absolute Monocytes 0.7 10^3/uL (0.1-0.6); Absolute Neutrophils 13.2 10^3/uL (1.4-6.5); Hematocrit 41.4 % (39.0-52.0); Hemoglobin 13.1 g/dL (13.0-18.0); Mean Corp Hgb Conc. 31.6 g/dL (33.0-37.0); Mean Corpuscular Hgb 30.8 pg (27.0-31.0); Mean Corpuscular Volume 97.4 fL (80.0-94.0); Nucleated Red Blood Cells % 0 % (-); Platelet Count 187 10^3/uL (130-400); Red Blood Cell Count 4.25 10^6/uL (4.70-6.10); Red Cell Dist. Width 15.4 % (11.5-14.5); White Blood Cell Count 14.8 10^3/uL (4.8-10.8)
[2023-04-29] MEDS: PROTONIX IV 40 MG IV (07:53)
[2023-04-29] MEDS: NSS (PRESERVATIVE FREE) 10 ML IV (07:53)
--- NOTE | 2023-04-29 10:44 | W.PN.HOSP.TC ---
Addendum entered and electronically signed by Jun Garcia MD 04/29/23 15:20:
Patient seen and examined
Discussed with resident nursing
Impression/plan:
Status post colostomy takedown with subsequent SBO
Status post adhesion lesions
Overall improving with now passing flatus and audible bowel sounds
Noted improvement in WBC and trending down creatinine.
Plan is for NG tube clamping today.
Continue TPN.
Continue IV Cardizem
Original Note:
Today's Communication/Plan
-
Clamp trial on NG tube
Continue TPN
WBC/Cre improved
Continue Cardizem drip.
Assessment / Plan
Assessment / Plan
IMPRESSION:�
Status post colostomy takedown.
Complicated diverticulitis with bowel resection and colostomy.� (Gomez procedure 11/09/2022)
Postoperative ileus
Other conditions:
Short episode/self-limited postoperative A-fib.
NSVT.
CKD stage IIIa.
Essential hypertension
Dyslipidemia
PLAN:
NG tube in place awaiting return of bowel function
Repeat CT scan and x-ray consistent with persistent small bowel obstruction.
TPN started; monitor electrolytes and replace as needed
Small Bowel follow-through Findings suggesting small bowel obstruction.
Remains n.p.o.
Status post open laparotomy with adhesion lesions and small bowel resection on 04/26
NG tube awaiting return of bowel function
Remains in sinus rhythm with normal rate
Monitor for recurrent A-fib
Has been off oral medications including diltiazem and metoprolol.
Continue Cardizem drip
Follow electrolytes.
Chronic kidney disease stage IIIa.
Creatinine at baseline
DVT ppx: Lovenox/SCDss
Code: Full
Anticipated Discharge: > 48 hours
Subjective/Interval History
-
Patient reports passing flatus. Patient denies nausea or vomiting. he reports he has not a bowel movement yet.
Objective Data
-
Labs:
Laboratory Results
04/29/23
03:56
WBC 14.8 H
Hgb 13.1
Hct 41.4
Plt Count 187
Vital Signs:
Vital Signs
Temp Pulse Resp BP Pulse Ox
98.1 F 93 9 128/81 95
04/29/23 07:26 04/29/23 06:00 04/29/23 06:00 04/29/23 06:00 04/28/23 20:54
I&O
04/28/23 04/29/23 04/30/23
06:59 06:59 06:59
Intake Total 115.5 / 115.5 1902 / 1902
Output Total 1250 / 1250 1155 / 1155 150 / 150
Balance -1134.5 / -1134.5 747 / 747 -150 / -150
Physical Exam
-
Respiratory: Clear to Auscultation; Negative Wheezes
Cardiac: Regular Rhythm and S1/S2
GI: Soft and Distended (Mildly distended)
Musculoskeletal: No Cyanosis
Neuro: Awake, Alert, Oriented and AO x 3
Psych: Calm
--- NOTE | 2023-04-29 10:48 | W.PN.CRS1 ---
Today's Communication / Plan
-
NGT clamping trial
Assessment/Plan
-
77-year-old male with PMH of A-fib (not on AC), HTN, stage III CKD and perforated diverticulitis with Bergman's procedure in 11/2022, presents for elective surgery
POD#14 robotic colostomy reversal, POD#2 lysis of adhesions
1.� Continue TPN, NG tube in place. Clamping trial today given flatus. If removed, remain NPO.
2.� Vitals normal. WBC 14.8, trending down.
3.� Continue prn analgesics.
4.� Continue DVT PPx with Lovenox/SCD's.
5.� Out of bed as tolerated, PT following.
6.� Continue IV Tylenol and Dilaudid PRN.
7.� Daily wound dressing changes.
Subjective Data
Procedure
Robotic colostomy takedown on 04/15/2023
Subjective Data
Date of Service: April 29, 2023
Patient state he has flatus. He is less distended. He denies nausea or vomiting. He has not had a bowel movement yet.
Objective Data
-
Vital Signs
Temp Pulse Resp BP Pulse Ox
98.1 F 93 9 128/81 95
04/29/23 07:26 04/29/23 06:00 04/29/23 06:00 04/29/23 06:00 04/28/23 20:54
Intake & Output
04/28/23 04/29/23 04/30/23
06:59 06:59 06:59
Intake Total 115.5 / 115.5 1902 / 1902
Output Total 1250 / 1250 1155 / 1155 150 / 150
Balance -1134.5 / -1134.5 747 / 747 -150 / -150
Intake:
IV fluids (Total) 2.5 / 2.5 70 / 70
Cardizem 2.5 / 2.5
IV piggybacks 230 / 230
TPN/PPN 63 / 63 1512 / 1512
Amount instilled into GI Tube ( 50 / 50 90 / 90
Total)
[place] Sump 50 / 50 90 / 90
Output:
Gastrointestinal tube output ( 700 / 700 105 / 105
Total)
[place] Sump 700 / 700 105 / 105
Urine, Lund 100 / 100 300 / 300
Urine, Voided 450 / 450 750 / 750 150 / 150
Lab Results
04/29/23 03:56
04/28/23 05:58
Physical Exam
-
General: No Acute Distress and AOx3
Abdomen: Soft, Distended (mild) and Non Tender
Skin: Warm and Dry
Wound: No Signs of Infection and Dressing Changed
--- NOTE | 2023-04-29 10:58 | PTCARENOTE ---
Per Colorectal WATERWORKS OPERATOR Anny, NGT clamped at this time - will check residuals at 14:30. Pt in agreement.
[2023-04-29 12:13] LABS: Glucose - Point of Care 121 mg/dl (70-99)
--- NOTE | 2023-04-29 12:37 | PTCARENOTE ---
Abd dressing changed as per orders-pt tolerated well. dry gauze and tape applied. Pt declines oob at this time, wants to wait until NGT is dc'd hopefully at 14:30 residual check.
--- NOTE | 2023-04-29 14:49 | PTCARENOTE ---
Gastric residual 0-NGT removed at this time, pt tolerated well. Anny marcus.
[2023-04-29] MEDS: DILAUDID 0.5 MG IV (15:40)
--- NOTE | 2023-04-29 16:42 | PTCARENOTE ---
Pt assisted oob at 15:50, standby assist only required. Pt worked with PT as well to ambulate in room. PRN Dilaudid administered for abdominal discomfort as needed this shift, see MAR for doses and times. Pt remains very pleasant and cooperative.
in to visit for a few hours today.
[2023-04-29] MEDS: LOVENOX 40 MG SC (17:18)
[2023-04-29 18:12] LABS: Glucose - Point of Care 115 mg/dl (70-99)
[2023-04-29] MEDS: Parenteral Nutrition, Central 1500 IV (20:37)
[2023-04-29 23:55] LABS: Glucose - Point of Care 120 mg/dl (70-99)
[2023-04-30] VITALS (11 sets, daily range): BP systolic 122–149; BP diastolic 75–99; BMI 22.5
[2023-04-30] MEDS: DILAUDID 1 MG IV ×6 (03:27→22:48)
[2023-04-30 04:25] LABS: % Basophils 0.3 % (0-2); % Eosinophils 1.9 % (0-6); % Immature Granulocytes 0.9 % (0-0.5); % Lymphocytes 14.5 % (20.5-51.1); % Neutrophils 73.4 % (42.2-75.2); Absolute Eosinophils 0.2 10^3/uL (0-0.7); Absolute Immature Granulocytes 0.1 10^3/uL (0-0.05); Absolute Lymphocytes 1.3 10^3/uL (1.2-3.4); Absolute Monocytes 0.8 10^3/uL (0.1-0.6); Absolute Neutrophils 6.8 10^3/uL (1.4-6.5); Hematocrit 40.4 % (39.0-52.0); Hemoglobin 13.1 g/dL (13.0-18.0); Mean Corp Hgb Conc. 32.4 g/dL (33.0-37.0); Mean Corpuscular Hgb 29.5 pg (27.0-31.0); Nucleated Red Blood Cells % 0 % (-); Platelet Count 208 10^3/uL (130-400); Red Blood Cell Count 4.44 10^6/uL (4.70-6.10); Red Cell Dist. Width 14.9 % (11.5-14.5); White Blood Cell Count 9.3 10^3/uL (4.8-10.8)
[2023-04-30 04:46] LABS: Blood Urea Nitrogen 38 mg/dl (9-20); Calcium 8.9 mg/dl (8.4-10.2); Carbon Dioxide 28 mmol/L (22-30); Chloride 109 mmol/L (98-107); Estimated Creatinine Clearance 56 ml/min; Glucose 126 mg/dl (70-99); Potassium 4.8 mmol/L (3.5-5.1); Sodium 140 mmol/L (135-145); eGFR > 60.00
--- NOTE | 2023-04-30 06:13 | PTCARENOTE ---
Pt requested 1mg IV Dilaudid throughout the night. Denies nausea or vomiting. Pt up to BSC x1; a few drops of liquid BM. Tolerating ice chips. Right DL PICC line dressing intact, lumens patent. TPN/Cardizem gtt infusing. Abd dressing intact. No
ectopy on tele. Call hearn within reach. Pt calls appropriately.
[2023-04-30] MEDS: PROTONIX IV 40 MG IV (08:31)
[2023-04-30] MEDS: NSS (PRESERVATIVE FREE) 10 ML IV (08:31)
--- NOTE | 2023-04-30 09:46 | W.PN.HOSP.TC ---
Addendum entered and electronically signed by Jun Garcia MD 04/30/23 14:30:
Patient seen and examined
Discussed with resident
Discussed with nursing
Impression/plan:
Status post colostomy takedown
SBO status post open laparotomy with adhesion lesions.
Overall improving with NG tube removed.
Noted normalized WBC and renal function.
Clear liquid diet
TPN for another 24 hours assuring appropriate oral intake
Continue IV Cardizem for rate/rhythm control as well as BP control with plan to transition to oral calcium channel bruce and beta-bruce if stable oral intake over the next 24 to 40 hours.
Original Note:
Today's Communication/Plan
-
NG tube out
passing flatus and audible bowel sounds
Continue IV Cardizem for another 24 hours
Switch to oral Cardizem if patient tolerates clears
Continue TPN
Assessment / Plan
Assessment / Plan
IMPRESSION:�
Status post colostomy takedown.
Complicated diverticulitis with bowel resection and colostomy.� (Gomez procedure 11/09/2022)
Postoperative ileus
Other conditions:
Short episode/self-limited postoperative A-fib.
NSVT.
CKD stage IIIa.
Essential hypertension
Dyslipidemia
PLAN:
NG tube in place awaiting return of bowel function
Repeat CT scan and x-ray consistent with persistent small bowel obstruction.
TPN started; monitor electrolytes and replace as needed
Small Bowel follow-through Findings suggesting small bowel obstruction.
Status post open laparotomy with adhesion lesions and small bowel resection on 04/26
NG tube out
Advance diet
Patient reports bowel movement
Remains in sinus rhythm with normal rate
Monitor for recurrent A-fib
Has been off oral medications including diltiazem and metoprolol.
Continue Cardizem drip
Follow electrolytes.
Chronic kidney disease stage IIIa.
Creatinine at baseline
DVT ppx: Lovenox/SCDss
Code: Full
Anticipated Discharge: > 48 hours
Subjective/Interval History
-
Date of Service: April 30, 2023
Objective Data
-
Labs:
Laboratory Results
04/30/23
03:51
WBC 9.3
Hgb 13.1
Hct 40.4
Plt Count 208
Sodium 140
Potassium 4.8
Chloride 109 H
Carbon Dioxide 28
BUN 38 H
Creatinine 1.1
Glucose 126 H
Calcium 8.9
Vital Signs:
Vital Signs
Temp Pulse Resp BP Pulse Ox
98.1 F 85 10 122/75 97
04/30/23 07:33 04/30/23 07:00 04/30/23 07:00 04/30/23 06:00 04/30/23 03:44
I&O
04/29/23 04/30/23 05/01/23
06:59 06:59 06:59
Intake Total 1902 / 1902 240 / 240
Output Total 1155 / 1155 1550 / 1550
Balance 747 / 747 -1310 / -1310
--- NOTE | 2023-04-30 10:39 | PN.CDI ---
CDI
- -
CDI:
Physician Documentation Request
Admit Date: 04/15/23 06:02
Dear Doctor Jose
Patient with history of CKD IIIA.
Recent creatinine resulted as follows:
04/25/23 04/26/23 04/27/23
05:31 07:58 05:06
Creatinine 0.9 1.0 1.4 H
04/28/23
05:58
Creatinine 1.2
Based on the above, could you provide a diagnosis that supports the above lab abnormalities and additional evaluation/ monitoring:
CHRISTIN on CKD IIIA
Abnormal lab value clinically insignificant - CKD III A only
Other
Use of terms such as suspected, likely, concern for, or probable (associated with a specific diagnosis that is being evaluated, monitored, or treated as if it exists) are acceptable and can be coded in the inpatient setting, when documented at the
time of discharge.
Thank you,
Kelly Chappell RN, BSN
CDI Specialist
tiger text
Please use your independent medical judgment in providing your response.
[2023-04-30] MEDS: DILAUDID 0.5 MG IV ×3 (11:38→21:38)
--- NOTE | 2023-04-30 11:39 | W.PN.CRS1 ---
Today's Communication / Plan
-
Advance to clears, continue TPN 1 more day
Appreciate hospitalist, continue Dilt drip
Assessment/Plan
-
Passing flatus, small BM
WBC 9.3, Hb 13.1
NGT removed yesterday
� Advance to clears
� Continue TPN
� Continue pain control with IV dilaudid
� Continue DVT PPx with Lovenox
� IS/OOB
�Appreciate hospitalist, cont dilt gtt for afib
Subjective Data
Procedure
Robotic colostomy takedown on 04/15/2023
Subjective Data
Date of Service: April 30, 2023
No overnight events.
Pain controlled.
Denies nausea/vomiting.
+flatus +BMs (small, liquidy) +voiding
Pt is OOB.
Objective Data
-
Vital Signs
Temp Pulse Resp BP Pulse Ox
98.1 F 85 10 122/75 97
04/30/23 07:33 04/30/23 07:00 04/30/23 07:00 04/30/23 06:00 04/30/23 03:44
Intake & Output
04/29/23 04/30/23 05/01/23
06:59 06:59 06:59
Intake Total 1902 / 1902 240 / 240
Output Total 1155 / 1155 1550 / 1550 150 / 150
Balance 747 / 747 -1310 / -1310 -150 / -150
Intake:
Oral fluids 240 / 240
IV fluids (Total) 70 / 70
IV piggybacks 230 / 230
TPN/PPN 1512 / 1512
Amount instilled into GI Tube ( 90 / 90
Total)
[place] Sump 90 / 90
Output:
Gastrointestinal tube output ( 105 / 105
Total)
[place] Sump 105 / 105
Urine, Lund 300 / 300
Urine, Voided 750 / 750 1550 / 1550 150 / 150
Lab Results
04/30/23 03:51
04/30/23 03:51
Physical Exam
-
General: No Acute Distress and AOx3
HEENT: Grossly Normal
Abdomen: Soft, Distended (Minimally distended), Tender (Appropriately tender near incisions), No Guarding and No Rebound
Skin: Warm and Dry
Wound: No Signs of Infection, Dressing in Place and No Skin Erythema
[2023-04-30 12:18] LABS: Glucose - Point of Care 124 mg/dl (70-99)
[2023-04-30] MEDS: CARDIZEM 125 IV (13:08)
--- NOTE | 2023-04-30 17:17 | CM ---
Patient with Dx colostomy takedown with prolonged postoperative ileus/SBO, s/p ex lap/JALEEL, partial SBR, flex sigmoid. Room air. Clears. TPN. PICC. Receiving Cardizem gtt. PT; no needs. OOB chair per nursing.
CM continuing to follow for d/c needs.
Plan home when medically ready.
[2023-04-30] MEDS: LOVENOX 40 MG SC (17:18)
[2023-04-30 18:10] LABS: Glucose - Point of Care 109 mg/dl (70-99)
[2023-04-30] MEDS: Parenteral Nutrition, Central 1500 IV (23:15)
[2023-04-30 23:46] LABS: Glucose - Point of Care 125 mg/dl (70-99)
[2023-05-01] VITALS (7 sets, daily range): BP systolic 81–130; BP diastolic 50–79; PULSE 87–100; O2SAT 97; BMI 23.2
[2023-05-01] MEDS: DILAUDID 1 MG IV ×5 (00:48→10:32)
[2023-05-01 06:10] LABS: Glucose - Point of Care 146 mg/dl (70-99)
[2023-05-01] MEDS: TOPROL XL 75 MG PO (07:36)
[2023-05-01] MEDS: CARDIZEM CD 120 MG PO (07:36)
[2023-05-01] MEDS: PROTONIX IV 40 MG IV ×2 (07:38→07:39)
[2023-05-01] MEDS: NSS (PRESERVATIVE FREE) 10 ML IV (07:39)
[2023-05-01] MEDS: LOW STRENGTH ASPIRIN 81 MG PO (07:40)
--- NOTE | 2023-05-01 09:54 | W.PN.HOSP.TC ---
Today's Communication/Plan
-
Possible dc
No objection to discharge from medicine
Assessment / Plan
Assessment / Plan
Physical Exam
-
General: Well Developed, Well Nourished and No Apparent Distress
HEENT: Normocephalic, Atraumatic and Moist Mucous Membranes. No NG.
Respiratory: Clear to Auscultation; Negative Wheezes, Rales or Rhonchi
Cardiac: S1 S2, regular, tachycardia
GI: Soft,
Musculoskeletal: No Clubbing, No Cyanosis and No Edema
Neuro: Awake, Alert and Oriented
Psych: calm, pleasant mood.
IMPRESSION:�
#Status post colostomy takedown.
Complicated diverticulitis with bowel resection and colostomy.� (Gomez procedure 11/09/2022)
Postoperative ileus
He seems to tolerate diet
NG is off
No abd pain
No nausea
# Short episode/self-limited postoperative A-fib.NSVT.
Remains in sinus rhythm with tachycardia
resume BB and Long acting CCB
Resume aspirin.
dc Cardizem gtt this morning
#CHRISTIN on CKD stage IIIa.
Creatinine back to baseline with good GFR
No flank pain
# Essential hypertension
# Dyslipidemia
# Hypokalemia, resolved.
DVT ppx: Lovenox/SCDss
Code: Full
�Total time spent to see the patient, examine the patient on the floor, review data and lab results, discuss treatment plan with the patient, nursing staff around 55 minutes
Anticipated Discharge: Within 24 hours
Subjective/Interval History
-
Date of Service: May 01, 2023
No pain
No sob
Objective Data
-
Vital Signs:
Vital Signs
Temp Pulse Resp BP Pulse Ox
97.6 F 98 18 102/71 97
05/01/23 07:37 05/01/23 07:37 05/01/23 07:37 05/01/23 07:37 05/01/23 07:37
I&O
04/30/23 05/01/23 05/02/23
06:59 06:59 06:59
Intake Total 240 / 240 1596 / 1596 7.5 / 7.5
Output Total 1550 / 1550 1400 / 1400 55 / 55
Balance -1310 / -1310 196 / 196 -47.5 / -47.5
--- NOTE | 2023-05-01 12:18 | W.PN.CRS1 ---
Today's Communication / Plan
-
Advance to full liquids
Complete TPN this evening
Transition to PO agents for pain control
Assessment/Plan
-
77-year-old male with PMH of A-fib (not on AC), HTN, stage III CKD and perforated diverticulitis with Gomez's procedure in 11/2022, who presented for colostomy reversal on 04/15/23 complicated be development of small bowel obstruction with return
to OR on 04/26 for ex lap with JALEEL, SBR. (POD #16, 4)
AFVSS
Bowel function improving, tolerating clears
Hospitalist following with transition back to PO cardiac meds, diltiazem gtt now off
� Advance to full liquids with supplements
� Finish this bag of TPN and then discontinue
� Transition to PO analgesics with prn Tylenol, Tramadol. Dilaudid for breakthrough pain
� Continue DVT PPx with Lovenox. SCD's while in bed
� IS/OOB. Pt following and cleared for home upon D/C
- Labs in AM
Tentative d/c tomorrow vs more likely Wednesday pending diet advancement/tolerance and pain control
Subjective Data
Procedure
Robotic colostomy takedown on 04/15/2023
Subjective Data
Date of Service: May 01, 2023
Patient seen and examined at bedside with Dr. Mckay. Denies n/v. Tolerating clear liquids. Passing flatus. Abdominal pain present but manageable and improving.
Objective Data
-
Vital Signs
Temp Pulse Resp BP Pulse Ox
97.4 F 87 16 97/67 97
05/01/23 12:11 05/01/23 12:11 05/01/23 12:11 05/01/23 12:11 05/01/23 12:11
Intake & Output
04/30/23 05/01/23 05/02/23
06:59 06:59 06:59
Intake Total 240 / 240 1596 / 1596 7.5 / 7.5
Output Total 1550 / 1550 1400 / 1400 115 / 115
Balance -1310 / -1310 196 / 196 -107.5 / -107.5
Intake:
Oral fluids 240 / 240 840 / 840
IV piggybacks 7.5 / 7.5
TPN/PPN 756 / 756
Output:
Urine, Voided 1550 / 1550 1400 / 1400 115 / 115
Lab Results
04/30/23 03:51
04/30/23 03:51
Physical Exam
-
General: No Acute Distress and AOx3
HEENT: Grossly Normal
Abdomen: Soft, Non Distended, Tender (Appropriately tender near incisions), No Guarding and No Rebound
Skin: Warm and Dry
Wound: No Signs of Infection, Dressing in Place, Dressing Dry and No Skin Erythema
[2023-05-01] MEDS: ULTRAM 50 MG PO ×2 (13:44→20:27)
[2023-05-01] MEDS: DILAUDID 0.5 MG IV ×2 (14:52→23:04)
[2023-05-01] MEDS: LOVENOX 40 MG SC (17:26)
[2023-05-01 17:59] LABS: Glucose - Point of Care 139 mg/dl (70-99)
[2023-05-02] VITALS (8 sets, daily range): BP systolic 83–125; BP diastolic 59–76; BMI 23.1
[2023-05-02] MEDS: ULTRAM 50 MG PO ×4 (04:05→23:37)
[2023-05-02 04:22] LABS: Hematocrit 33.3 % (39.0-52.0); Hemoglobin 10.9 g/dL (13.0-18.0); Mean Corp Hgb Conc. 32.7 g/dL (33.0-37.0); Mean Corpuscular Hgb 29.9 pg (27.0-31.0); Mean Corpuscular Volume 91.2 fL (80.0-94.0); Mean Platelet Volume 12.9 fL (7.4-10.4); Platelet Count 255 10^3/uL (130-400); Red Blood Cell Count 3.65 10^6/uL (4.70-6.10); Red Cell Dist. Width 14.5 % (11.5-14.5); White Blood Cell Count 10.1 10^3/uL (4.8-10.8)
[2023-05-02 05:00] LABS: Blood Urea Nitrogen 39 mg/dl (9-20); Calcium 8.7 mg/dl (8.4-10.2); Carbon Dioxide 24 mmol/L (22-30); Chloride 107 mmol/L (98-107); Estimated Creatinine Clearance 58 ml/min; Glucose 99 mg/dl (70-99); Magnesium 2.3 mg/dl (1.6-2.3); Potassium 5.4 mmol/L (3.5-5.1); Sodium 134 mmol/L (135-145); eGFR > 60.00
[2023-05-02] MEDS: DILAUDID 0.5 MG IV ×3 (08:43→20:54)
[2023-05-02] MEDS: LOW STRENGTH ASPIRIN 81 MG PO (08:44)
[2023-05-02] MEDS: TOPROL XL 75 MG PO (08:53)
[2023-05-02] MEDS: NSS (PRESERVATIVE FREE) 10 ML IV (08:54)
[2023-05-02] MEDS: PROTONIX IV 40 MG IV (08:54)
[2023-05-02] MEDS: CARDIZEM CD 120 MG PO (10:06)
--- NOTE | 2023-05-02 10:30 | CM ---
Reviewed the chart notes and spoke with the patient at the bedside. IMM signed and placed on the chart. The patient anticipates being discharged to home with no additional needs. CM continues to be available to patient/family and is monitoring
medical plan for needs at discharge.
Plan: Discharge to home when medically stable.
--- NOTE | 2023-05-02 11:26 | W.PN.CRS1 ---
Today's Communication / Plan
-
low residue
shower
Assessment/Plan
-
77-year-old male with PMH of A-fib (not on AC), HTN, stage III CKD and perforated diverticulitis with Bergman's procedure in 11/2022, presents for elective surgery
POD#17 robotic colostomy reversal, POD#5 lysis of adhesions
1.� Doing well with fulls, advance to low residue with Ensure.
2.� Vitals normal. WBC 10.1, trending down.
3.� Continue prn analgesics.
4.� Continue DVT PPx with Lovenox/SCD's.
5.� Out of bed as tolerated, PT following.
6.� Continue IV Tylenol and Dilaudid PRN.
7.� Daily wound dressing changes.
8. Okay to shower.
Subjective Data
Procedure
Robotic colostomy takedown on 04/15/2023
Subjective Data
Date of Service: May 02, 2023
Patient states his pain is controlled. He is having bowels movements and flatus. He tolerated full liquids. He overall feels well.
Objective Data
-
Vital Signs
Temp Pulse Resp BP Pulse Ox
98.1 F 94 18 105/63 97
05/02/23 07:00 05/02/23 10:06 05/02/23 10:06 05/02/23 10:06 05/02/23 07:00
Intake & Output
05/01/23 05/02/23 05/03/23
06:59 06:59 06:59
Intake Total 1596 / 1596 1003.5 / 1003.5
Output Total 1400 / 1400 730 / 730
Balance 196 / 196 273.5 / 273.5
Intake:
Oral fluids 840 / 840 240 / 240
IV piggybacks 7.5 / 7.5
TPN/PPN 756 / 756 756 / 756
Output:
Urine, Voided 1400 / 1400 730 / 730
Lab Results
05/02/23 04:11
05/02/23 04:11
Physical Exam
-
General: No Acute Distress and AOx3
Abdomen: Soft, Non Distended and Non Tender
Skin: Warm and Dry
Incision: Clear, Dry, Intact
--- NOTE | 2023-05-02 12:28 | W.PN.HOSP.TC ---
Today's Communication/Plan
-
.
Assessment / Plan
Assessment / Plan
Physical Exam
-
General: Well Developed, Well Nourished and No Apparent Distress
HEENT: Normocephalic, Atraumatic and Moist Mucous Membranes. off NG.
Respiratory: Clear to Auscultation; Negative Wheezes, Rales or Rhonchi
Cardiac: S1 S2, regular, no tachycardia
GI: Soft,
Musculoskeletal: No Clubbing, No Cyanosis and No Edema
Neuro: Awake, Alert and Oriented
Psych: calm, pleasant mood.
IMPRESSION:�
#Status post colostomy takedown.
Complicated diverticulitis with bowel resection and colostomy.� (Gomez procedure 11/09/2022)
Postoperative ileus
He seems to tolerate liquid diet
NG is off. Good BS.
No abd pain
No nausea
Surgery is following closely.
# Mild acute blood loss anemia. Expected after surgery and blood work. Not dizzy. Monitor hemoglobin.
# Short episode/self-limited postoperative A-fib.NSVT.
Remains in sinus rhythm without tachycardia most of the day
resume BB and Long acting CCB
Resume aspirin.
Off Cardizem gtt.
#CHRISTIN on CKD stage IIIa.
Creatinine back to baseline 1.1with good GFR
No flank pain
# Hyperkalemia, change to low K
Repeat BMP
No Changes on tele.
# Hyponatremia, mild
# Essential hypertension
Low BP, d/w nursing will space out his BB and CCB and monitor during the day. I anticipate improvement in BP when pt starts diet.
# Dyslipidemia
# Hypokalemia, resolved.
DVT ppx: Lovenox/SCDss
Code: Full
�Total time spent to see the patient, examine the patient on the floor, review data and lab results, discuss treatment plan with the patient, nursing staff around 55 minutes
Anticipated Discharge: Within 24 hours
Subjective/Interval History
-
Date of Service: May 02, 2023
No complaints
Passing much gas
He denies sob, chest pain
No fevers
Tolerated lquid diet
Objective Data
-
Labs:
Laboratory Results
05/02/23
04:11
WBC 10.1
Hgb 10.9 L
Hct 33.3 L
Plt Count 255 D
Sodium 134 L
Potassium 5.4 H
Chloride 107
Carbon Dioxide 24
BUN 39 H
Creatinine 1.1
Glucose 99
Calcium 8.7
Vital Signs:
Vital Signs
Temp Pulse Resp BP Pulse Ox
98.1 F 94 18 105/63 97
05/02/23 07:00 05/02/23 10:06 05/02/23 10:06 05/02/23 10:06 05/02/23 07:00
I&O
05/01/23 05/02/23 05/03/23
06:59 06:59 06:59
Intake Total 1596 / 1596 1003.5 / 1003.5
Output Total 1400 / 1400 730 / 730
Balance 196 / 196 273.5 / 273.5
[2023-05-02] MEDS: LOVENOX 40 MG SC (17:38)
[2023-05-03 03:00] VITALS: BP 145/61
[2023-05-03 05:45] VITALS: BMI 23.0
[2023-05-03] MEDS: ULTRAM 50 MG PO (06:27)
[2023-05-03 06:50] LABS: Hematocrit 29.1 % (39.0-52.0); Hemoglobin 9.8 g/dL (13.0-18.0); Mean Corp Hgb Conc. 33.7 g/dL (33.0-37.0); Mean Corpuscular Hgb 30.4 pg (27.0-31.0); Mean Corpuscular Volume 90.4 fL (80.0-94.0); Mean Platelet Volume 12.9 fL (7.4-10.4); Platelet Count 264 10^3/uL (130-400); Red Blood Cell Count 3.22 10^6/uL (4.70-6.10); Red Cell Dist. Width 14.7 % (11.5-14.5); White Blood Cell Count 8.6 10^3/uL (4.8-10.8)
[2023-05-03 07:22] LABS: Blood Urea Nitrogen 39 mg/dl (9-20); Carbon Dioxide 25 mmol/L (22-30); Chloride 104 mmol/L (98-107); Estimated Creatinine Clearance 53 ml/min; Glucose 92 mg/dl (70-99); Potassium 4.7 mmol/L (3.5-5.1); Sodium 134 mmol/L (135-145); eGFR > 60.00
[2023-05-03 07:25] VITALS: BP 97/63
[2023-05-03] MEDS: PROTONIX IV 40 MG IV (08:11)
[2023-05-03] MEDS: LOW STRENGTH ASPIRIN 81 MG PO (08:11)
[2023-05-03] MEDS: NSS (PRESERVATIVE FREE) 10 ML IV (08:12)
[2023-05-03] MEDS: TOPROL XL 75 MG PO (08:13)
[2023-05-03] MEDS: CARDIZEM CD 120 MG PO (08:14)
[2023-05-03 08:15] VITALS: BP 112/72
--- NOTE | 2023-05-03 10:39 | W.PN.CRS1 ---
Today's Communication / Plan
-
Okay for discharge
Assessment/Plan
-
77-year-old male with PMH of A-fib (not on AC), HTN, stage III CKD and perforated diverticulitis with Bergman's procedure in 11/2022, presents for elective surgery
POD#18 robotic colostomy reversal, POD#6 lysis of adhesions
1.� Continue low residue diet with Ensure.
2.� Vitals normal. White count is normal at 8.6.
3.� Continue prn analgesics.
4.� Continue DVT PPx with Lovenox/SCD's.
5.� Out of bed as tolerated, PT following.
6.� Continue IV Tylenol and Dilaudid PRN.
7.� Daily wound dressing changes.
8.� Okay to shower.
9. Okay for discharge from our perspective. Discussed wound care, follow-up, and diet with patient. Patient will follow-up in the office in [address] Smith. All questions answered.
Subjective Data
Procedure
Robotic colostomy takedown on 04/15/2023
Subjective Data
Date of Service: May 03, 2023
Patient states he feels well today. Denies nausea or vomiting. He is eating. He has flatus and is urinating. He is having bowel movements. He has no complaints.
Objective Data
-
Vital Signs
Temp Pulse Resp BP Pulse Ox
97.5 F 92 18 112/72 97
05/03/23 07:25 05/03/23 08:15 05/03/23 07:25 05/03/23 08:15 05/03/23 07:25
Intake & Output
05/02/23 05/03/23 05/04/23
06:59 06:59 06:59
Intake Total 1003.5 / 1003.5 240 / 240
Output Total 730 / 730 425 / 425
Balance 273.5 / 273.5 -185 / -185
Intake:
Oral fluids 240 / 240 240 / 240
IV piggybacks 7.5 / 7.5
TPN/PPN 756 / 756
Output:
Urine, Voided 730 / 730 425 / 425
Other:
Number of approximated MODERATE 2
amounts of urine
Lab Results
05/03/23 06:26
05/03/23 06:26
Physical Exam
-
General: No Acute Distress and AOx3
Abdomen: Soft, Non Distended and Non Tender
Wound: No Signs of Infection
Incision: Clear, Dry, Intact ([place] in place)
--- NOTE | 2023-05-03 10:52 | W.DS.TRANS ---
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
-
Discharge Instructions:
Sleep Apnea Risk Low
Discharge Diagnosis/Procedures Colostomy closure
Diet Low Fiber
Additional Diets Continue low residue until seen by Dr. Smith
Activity No strenuous activity
Additional Activity No heavy lifting >10 pounds (gallon of milk) for
6 weeks
Driving Restrictions Wait until off narcotics/comfortable twisting
Bathing Restrictions OK to Shower
Wound Care Cover your incision and the drain site with dry
gauze dressing and change daily after showering
and as needed.
Instructions: Low Fiber Diet
Stand-Alone Forms:
Changes to Home Medications: Yes
Discharge Medications:
DC Medications w/original date entered in [employer]
aspirin 81 mg chewable tablet 81 mg PO DAILY Blood clot prevention/tx #30 tabs 11/15/22
diltiazem HCl 120 mg capsule,extended release 24 hr (Cardizem CD) 120 mg PO DAILY Arrhythmia #30 caps 11/15/22
metoprolol succinate 50 mg tablet,extended release 24 hr 75 mg PO DAILY 04/13/23
tramadol 50 mg tablet 50 mg PO Q6H PRN Pain #20 tabs 05/03/23
Home Medication Changes
tramadol 50 mg tablet 50 mg PO Q6H PRN Pain #20 tabs 05/03/23
Pending Results: No
--- NOTE | 2023-05-03 11:15 | CM ---
Addendum entered by Fabien Henry 05/03/23 11:20:
Please fax discharge instructions to [facility] at [phone]
Original Note:
CM following re: discharge planning.
Reviewed pt's chart, met with pt.
Discharge order is noted. Pt is aware, expressed his agreement with discharge. IMM reviewed, placed in chart, pt has a copy.
PT and OT evaluations noted - home PT/OT recommended. Pt is aware, expressed his agreement and he stated he is known to [facility] and pt is requested to make a referral to [facility]. Pt stated his spouse will transport home.
A referral to [facility] made.
Please fax discharge instructions to [facility] at [phone]
D/C plan: home with [facility] and family support. Spouse to transport.
No other discharge needs identified.
[2023-05-03 11:45] VITALS: BP 111/62
== END 2023-05-03 13:07 | disposition home health service (06) | DRG 330 ==
LOC: 2 SOUTH 06:02
PROVIDERS: Internal Medicine; Nurse Practitioner Family; Physician Assistant; Registered Nurse; Specialist; ADMITTING PHYSICIAN Surgery; ATTENDING PHYSICIAN Family Medicine; CONSULT PHYSICIAN Internal Medicine; FAMILY PHYSICIAN Family Medicine
PROC: 0DSP4ZZ Reposition Rectum, Percutaneous Endoscopic Approach (ICD-10-PCS; 2023-04-15)
PROC: 0T778DZ Dilation of Left Ureter with Intraluminal Device, Via Natural or Artificial Opening Endoscopic (ICD-10-PCS; 2023-04-15)
PROC: 8E0W4CZ Robotic Assisted Procedure of Trunk Region, Percutaneous Endoscopic Approach (ICD-10-PCS; 2023-04-15)
PROC: 0DJD8ZZ Inspection of Lower Intestinal Tract, Via Natural or Artificial Opening Endoscopic (ICD-10-PCS; 2023-04-15)
PROC: 0DN80ZZ Release Small Intestine, Open Approach (ICD-10-PCS; 2023-04-27)
PROC: 0DT80ZZ Resection of Small Intestine, Open Approach (ICD-10-PCS; 2023-04-27)
DX: Z43.3 Encounter for attention to colostomy (principal); D62 Acute posthemorrhagic anemia; E87.1 Hypo-osmolality and hyponatremia; I47.20 Ventricular tachycardia, unspecified; K56.51 Intestinal adhesions [bands], with partial obstruction; K56.7 Ileus, unspecified; K91.89 Other postprocedural complications and disorders of digestive system; L76.32 Postprocedural hematoma of skin and subcutaneous tissue following other procedure; N17.9 Acute kidney failure, unspecified; N40.0 Benign prostatic hyperplasia without lower urinary tract symptoms; N18.31 Chronic kidney disease, stage 3a; I48.0 Paroxysmal atrial fibrillation; I12.9 Hypertensive chronic kidney disease with stage 1 through stage 4 chronic kidney disease, or unspecified chronic kidney disease; E78.5 Hyperlipidemia, unspecified; Q43.0 Meckel's diverticulum (displaced) (hypertrophic); Y83.8 Other surgical procedures as the cause of abnormal reaction of the patient, or of later complication, without mention of misadventure at the time of the procedure; E87.6 Hypokalemia
CPT/HCPCS: 88304; 88307; 36415; 71045; 74019; 74177; 74250; 80048; 80053; 82040; 82247; 82570; 82962; 83036; 83605; 83735; 84075; 84100; 84155; 84450; 84460; 84478; 85025; 85027; 85610; 85730; 86850; 86900; 86901; 97110; 97116; 97162; 97164; 97530; J1335; Q9967

== ENCOUNTER 2023-05-15 14:20 | Observation (INO) | payer MEDICARE, OTHER, SELFPAY ==
[2023-05-15 05:18] VITALS: BMI 23.4
[2023-05-15 05:19] VITALS: BP 126/72
[2023-05-15 05:43] LABS: % Basophils 0.3 % (0-2); % Eosinophils 3.6 % (0-6); % Lymphocytes 15.3 % (20.5-51.1); % Monocytes 8.7 % (1.7-9.3); % Neutrophils 71.1 % (42.2-75.2); Absolute Eosinophils 0.3 10^3/uL (0-0.7); Absolute Immature Granulocytes 0.1 10^3/uL (0-0.05); Absolute Lymphocytes 1.1 10^3/uL (1.2-3.4); Absolute Monocytes 0.6 10^3/uL (0.1-0.6); Absolute Neutrophils 4.9 10^3/uL (1.4-6.5); Hemoglobin 9.3 g/dL (13.0-18.0); Mean Corp Hgb Conc. 33.2 g/dL (33.0-37.0); Mean Corpuscular Hgb 29.1 pg (27.0-31.0); Mean Corpuscular Volume 87.5 fL (80.0-94.0); Mean Platelet Volume 10.3 fL (7.4-10.4); Nucleated Red Blood Cells % 0 % (-); Platelet Count 392 10^3/uL (130-400); Red Cell Dist. Width 14.4 % (11.5-14.5); White Blood Cell Count 6.9 10^3/uL (4.8-10.8)
[2023-05-15 05:55] LABS: ALT (SGPT) 16 U/L (0-50); AST (SGOT) 17 U/L (17-59); Albumin 2.6 g/dl (3.5-5.0); Alkaline Phosphatase 77 U/L (38-126); Blood Urea Nitrogen 18 mg/dl (9-20); Carbon Dioxide 24 mmol/L (22-30); Chloride 110 mmol/L (98-107); Estimated Creatinine Clearance 53 ml/min; Glucose 115 mg/dl (70-99); Lipase 258 U/L (23-300); Potassium 3.8 mmol/L (3.5-5.1); Sodium 135 mmol/L (135-145); Total Bilirubin 0.8 mg/dl (0.2-1.3); Total Protein 5.5 g/dl (6.3-8.2); eGFR > 60.00
[2023-05-15 06:00] VITALS: BP 128/89
[2023-05-15 07:00] VITALS: BP 110/97
--- NOTE | 2023-05-15 07:11 | ED.GENMED ---
History of Present Illness
General
Chief Complaint: Abdominal Pain
Source: patient
Exam Limitations: none
Time Seen by Provider: 05/15/23 06:51
Nursing documentation reviewed up to this point in time: agreed with
Travel History
Have you had any contact with someone who has COVID-19?: No
Do you have any symptoms of coronavirus? Fever > 100 degrees, chills, cough, shortness of breath, sore throat, loss of taste or smell, muscle aches, or headache?: No
History of Present Illness
History of Present Illness:
77-year-old male presents emergency department complaining of right lower quadrant abdominal pain since last night. He was discharged 1 week ago after having colorectal reconstructive surgery. No vomiting or fever.
Past History
Past History
ED Past Medical History: HTN
ED Past Surgical History: Bowel resection and Other (Colorectal reanastomosis)
Social History
Tobacco: Non-smoker
Alcohol: Occasional
Personal:
Living: with family
Review of Systems
Review of Systems
Allergies reviewed?: Yes
All Other Systems: Not applicable
Constitutional: Reports no symptoms
EENT: Reports no symptoms
Respiratory: Reports no symptoms
Cardiac: Reports no symptoms
ABD/GI: Reports abdominal pain; Denies vomiting or diarrhea
: Reports no symptoms
Musculoskeletal: Reports no symptoms
Skin: Reports no symptoms
Neurological: Reports no symptoms
Endocrine: Reports no symptoms
Hematologic/Lymphatic: Reports no symptoms
Psychiatric: Reports no symptoms
Phy Exam
Physical Exam
Physical Exam:
Physical Exam
General: no apparent distress, not acutely ill
Neck: supple. no meningeal signs. normal posterior pharynx
Heart: s1/s2 regular rate and rhythm, no murmur. equal radial
pulses.
HEENT: Pupils equal round reactive to light, EOMI
Lungs: no acute respiratory distress. clear bilaterally
Abdomen: normal bowel sounds. Right lower quadrant tenderness. Midline incision wound clean dry and intact. No CVAT
Neuro: alert and oriented. no focal neurological deficits cranial nerves II through XII intact
Skin: no rash
Psychiatric: well kept. interactive and cooperative
Extremities: no edema. no calf tenderness. negative homans. good distal pulses
Course
Orders/Labs/Results
Orders:
Orders
05/15/23 05:24
Electrocardiogram (*1) Urgent
Reason for Study: Abdominal Pain
EKG- Treatment ONCE
05/15/23 05:29
Complete Blood Count/With Diff Urgent
Comprehensive Metabolic Panel Urgent
Lipase Urgent
05/15/23 07:08
CT Abd/pel W Iv And Oral Contr Urgent
Comment:
Reason For Exam: RLQ abd pain, recent colostomy reversal
Iohexol [Omnipaque] See Protocol PO NOW STA
05/15/23 Lunch
Full Liquids
At Your Request: Full Participation
Flush Continuous pump feedings with water (mL/hr): 25
Oral Supplement (If unsure of flavor order apple or vanilla): Ensure Enlive Vanilla
Supplement Frequency: Daily
05/15/23 13:49
Admit Patient As Directed
Co-Sign Provider:
Level of Care: Observation services
Assign to:: Medical/Surgical
Physician / Group: Pellini/Surgery
Diagnosis: enteritis
Code Status As Directed
Resuscitation Status: Full Code
Acetaminophen [Tylenol] 650 mg PO Q4HPRN PRN
HYDROmorphone [Dilaudid] 0.5 mg IV Q4HPRN PRN
Ibuprofen [Motrin] 400 mg PO Q6HPRN PRN
Ondansetron Injectable [Zofran] 4 mg IV Q6HPRN PRN
Activity As Directed
Activity Level: Out of Bed-Early Mobility
Intake/ Output As Directed
Frequency: Per unit guidelines
Pneumatic Compression Sleeves As Directed
Type: Knee high
Vital Signs As Directed
Frequency: Per unit guidelines
DX Deep Vein Thrombosis Video Routine
05/15/23 14:00
0.9% Sodium Chloride 1000 ml [Nss] 1,000 ml IV 120 mls/hr
Aspirin Chewable [Low Strength Aspirin] 81 mg PO DAILY
Diltiazem Extended Release [Cardizem Cd] 120 mg PO DAILY
Metoprolol Xl [Toprol Xl] 50 mg PO DAILY
05/15/23 18:00
Enoxaparin Sodium [Lovenox] 40 mg SC QPM
05/16/23 06:00
Basic Metabolic Panel IN AM
Complete Blood Count/No Diff IN AM
Abnormal Lab Results
05/15/23
05:29
RBC 3.20 L 10^6/uL
(4.70-6.10)
Hgb 9.3 L g/dL
(13.0-18.0)
Hct 28.0 L %
(39.0-52.0)
Abs Immat Gran (auto) 0.1 H 10^3/uL
(0-0.05)
Absolute Lymphs (auto) 1.1 L 10^3/uL
(1.2-3.4)
Immature Gran % 1.0 H %
(0-0.5)
Lymphocytes % 15.3 L %
(20.5-51.1)
Chloride 110 H mmol/L
(98-107)
Glucose 115 H mg/dl
(70-99)
Total Protein 5.5 L g/dl
(6.3-8.2)
Albumin 2.6 L g/dl
(3.5-5.0)
05/15/23 05:29
05/15/23 05:29
Vital Signs
Initial and Last Documented VS:
Initial Vital Signs
Temp Pulse Resp BP Pulse Ox
98.9 F 122 20 126/72 99
05/15/23 05:19 05/15/23 05:19 05/15/23 05:19 05/15/23 05:19 05/15/23 05:19
Last Documented Vital Signs
Temp Pulse Resp BP Pulse Ox
98.9 F 109 16 116/80 95
05/15/23 05:19 05/15/23 12:24 05/15/23 12:24 05/15/23 13:06 05/15/23 12:24
MDM/Problems Addressed
Differential Diagnosis Includes:
Bowel obstruction, intra-abdominal abscess
MDM/Problems Addressed:
77-year-old male with likely reactive enteritis. Discussed with Dr. Jeff on-call for colorectal surgery, he will admit.
Chronic conditions affecting care: Previous abdomnial surgery (Colonic reanastomosis)
Acute Exacerbation and/or Progression of Chronic Illness: Previous abdomnial surgery (Colonic reanastomosis)
*Pulse Oximetry
Patient hypoxic: no
*EKG
Interpreted by ED Provider?: NA
*State Inspector Interpretation
Rate: State Inspector- N/A
*Critical Care Note
Total Time (30-74mins, 75-104mins- exclusive of procedures): Not Applicable
Data Reviewed
Review of Other/Old Records Reveals: Progress Notes (Patient improved during recent hospital stay after reanastomosis)
Source: records
Patient Management
Social determinants of health affecting care: Living situation
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
Escalation/DeEscalation of care consider admission/obs:
Admit indicated
ED Attending Note
-
Portions of this chart may have been created with voice recognition software.� Occasional wrong word or��sound alike� substitutions may have occurred due to the inherent limitations of voice recognition software.
Discharge Plan
Departure
Patient Disposition: Admit
Date of Disposition: 05/15/23
Time of Disposition: 10:56
Admit to: Med/Surg
Presentation/result/management discussed w/ accepting MD/DO: Colorectal surgery, Dr. Luo
Patient with high blood pressure during this ER visit?: No
Condition: Good
Discharge Problem:
Enteritis
Interventions
Interventions:
*Risk Screen - Suicide Last Done: 05/15/23 05:19
*General Assessment Last Done: 05/15/23 05:19
*Neglect/Abuse Screening Last Done: 05/15/23 05:19
ED- Fall Risk Assessment Last Done: 05/15/23 05:27
*ED COVID-19 Vaccine History Last Done: 05/15/23 05:19
WW-[id number]-[id number] Assessment Last Done: 05/15/23 05:27
[2023-05-15] MEDS: OMNIPAQUE 50 ML PO (07:14)
[2023-05-15 13:06] VITALS: BP 116/80
--- NOTE | 2023-05-15 13:49 | HPS.HSE ---
Family Physician
-
Family Physician: Blaise Reyes MD
Chief Complaint
-
Abdominal pain
History of Present Illness
Mr. Newell is a pleasant 77-year-old male recently status post robotic assisted laparoscopic reversal and colostomy on 04/15/2023. Developed early postoperative small bowel obstruction managed surgically on 04/27/2023 with ex lap lysis of adhesions,
small bowel resection in which transition point was noted adjacent to a Meckel's diverticulum. Patient recovered well from operative procedure and was discharged home: 05/03/2023.
He developed the acute onset of progressive abdominal pain yesterday evening while watching basketball at home. States he felt fairly well during the day but was a little bit more fatigued than usual. He was trying to stay up and not nap as it has
been affecting his sleep at night. As the evening progressed he began developing colicky/sharp crampy abdominal pain in the suprapubic and right lower quadrant region which was new for him. He has been feeling quite well particularly earlier in
the week. Tolerating low residue diet, no nausea or vomiting. No abdominal bloating or distention. His bowels have been moving regularly with semiformed stool, no constipation, no diarrhea, no blood. Saw his primary care physician for routine
follow-up which was unremarkable this week. His incision sites appear to be healing well to himself. No fevers chills or sweats either.
Cramps have subsided since presenting to the emergency department. He has had multiple loose bowel movements after oral contrast for CT imaging. Feeling better. No nausea.
Medical History
Past Medical History
Past Medical History: Reports Other (P A-fib, hypertension)
Past Surgical History: Reports Other (History of sigmoid diverticulitis with perforation managed by Gomez procedure 11/2022, RAL reversal and colostomy 04/15/2023, ex lap lysis of adhesions, small bowel resection 04/28/2023)
Social History
Tobacco: Non-smoker
Alcohol: None
Personal:
Living: With Family
Employment: Retired
Family History
Family History: Not pertinent
Allergies / Home Medications
Allergies reflects when Allergies were last updated in [email or web address].
Home Medications with original date entered in [email or web address]
Allergy/Medication List:
�Medication �Instructions �Recorded �Confirmed �Type
aspirin 81 mg chewable tablet 81 mg PO DAILY Blood clot 11/15/22 05/15/23 Rx
prevention/tx #30 tabs
diltiazem HCl 120 mg 120 mg PO DAILY Arrhythmia #30 caps 11/15/22 05/15/23 Rx
capsule,extended release 24 hr
(Cardizem CD)
metoprolol succinate 50 mg 50 mg PO DAILY 04/13/23 05/15/23 History
tablet,extended release 24 hr
tramadol 50 mg tablet 50 mg PO Q6H PRN Moderate Pain 05/15/23 05/15/23 History
Allergies
Allergy/AdvReac Type Severity Reaction Status Date / Time
No Known Allergies Allergy Verified 05/15/23 05:26
Review of Systems
-
History Source: Patient
A 12 point ROS was completed and negative except as noted: Yes
Physical Exam
Vital Signs
Vital Signs
Temp Pulse Resp BP Pulse Ox
98.9 F 109 16 116/80 95
05/15/23 05:19 05/15/23 12:24 05/15/23 12:24 05/15/23 13:06 05/15/23 12:24
Physical Exam
General: Well Developed, Well Nourished, No Apparent Distress, Comfortable and Conversant
HEENT: NormoCephalic, Anicteric, Moist mucous membranes and Atraumatic
Respiratory: Non Labored Respirations
Cardiac: Regular Rhythm
GI: Soft, Non Distended, Tender (Slight tenderness to palpation right lower quadrant suprapubic area and some fullness in this region. No rebound rigidity or guarding.) and Other (Midline surgical incision with skin edges well-approximated,
idania. No erythema, no seromas, no drainage, no induration. Left-sided old ostomy site similarly healing well.)
Skin: Warm
Neuro: AO x 3 and Nonfocal/grossly intact
Psych: Calm
Laboratory Results
-
05/15/23 05:29
05/15/23 05:29
Laboratory Results
Total Bilirubin 0.8 mg/dl (0.2-1.3) 05/15/23 05:29
AST 17 U/L (17-59) 05/15/23 05:
ALT 16 U/L (0-50) 05/15/23 05:29
Alkaline Phosphatase 77 U/L (38-126) 05/15/23 05:
Lipase 258 U/L (23-300) 05/15/23 05:29
Data Reviewed
-
CT Scan: Image Personally Visualized and interpreted, Report Reviewed by me, Discussed with Physician and Discussed with Patient
Lab Data: Labs Reviewed by me and Discussed with Patient
Impression/Plan
-
IMPRESSION: 77-year-old male status post ex lap, lysis of adhesions small bowel resection 04/28/2023 and RAL reversal and colostomy 04/15/2023 with possible reactive enteritis
Reviewing CT imaging there is no evidence of bowel obstruction as oral contrast opacifies through the colon and he has had multiple bowel movements since CT imaging as well. No evidence of anastomotic leak as there is no extraluminal air in the
vicinity of either the small bowel nor colorectal anastomosis. There is some scattered free fluid and some semiorganizing free fluid around the suprapubic intra-abdominal region but no significant enhancement or extraluminal air. Appears to be
surrounding reactive small bowel thickening likely explaining his symptoms which started overnight.
Not clear that this is an infectious process as white blood cell count is normal, no fevers, no subjective chills or sweats or associated infectious constitutional symptoms. Abdominal examination is quite benign other than some mild tenderness but
certainly no peritoneal signs. Anemia has been present postoperatively and it essentially is stable today at 9.3.
PLAN: Patient will be admitted with IV fluid hydration and bowel rest on liquid diet
Continue to monitor for any infectious signs or symptoms which would prompt further workup (cultures, etc.)
Repeat CBC in a.m. and BMP
Home p.o. meds
[2023-05-15 15:43] VITALS: BMI 22.1
[2023-05-15 15:45] VITALS: BP 145/91
[2023-05-15 15:58] VITALS: BMI 22.1
[2023-05-15] MEDS: TOPROL XL 50 MG PO (16:11)
[2023-05-15] MEDS: LOW STRENGTH ASPIRIN 81 MG PO (16:11)
[2023-05-15] MEDS: NSS 1000 IV (16:16)
[2023-05-15] MEDS: CARDIZEM CD 120 MG PO (16:16)
[2023-05-15] MEDS: LOVENOX 40 MG SC (17:41)
[2023-05-15] MEDS: MOTRIN 400 MG PO (19:02)
--- NOTE | 2023-05-15 20:00 | PTCARENOTE ---
Pt. AAO x 3, resting in bed, abdominal dressing clean, dry, and intact, some tenderness at site, IVF's running, call hearn within reach.
[2023-05-15 23:24] VITALS: BP 124/72
[2023-05-16] MEDS: NSS 1000 IV ×2 (00:11→08:51)
[2023-05-16] MEDS: MOTRIN 400 MG PO ×2 (02:58→10:19)
[2023-05-16] MEDS: DILAUDID 0.5 MG IV (05:54)
[2023-05-16 06:06] LABS: Mean Corp Hgb Conc. 33.3 g/dL (33.0-37.0); Mean Corpuscular Hgb 29.3 pg (27.0-31.0); Mean Corpuscular Volume 87.9 fL (80.0-94.0); Mean Platelet Volume 10.5 fL (7.4-10.4); Platelet Count 374 10^3/uL (130-400); Red Blood Cell Count 3.07 10^6/uL (4.70-6.10); Red Cell Dist. Width 14.5 % (11.5-14.5); White Blood Cell Count 6.4 10^3/uL (4.8-10.8)
[2023-05-16 06:18] LABS: Blood Urea Nitrogen 15 mg/dl (9-20); Calcium 9.2 mg/dl (8.4-10.2); Carbon Dioxide 25 mmol/L (22-30); Chloride 105 mmol/L (98-107); Estimated Creatinine Clearance 51 ml/min; Glucose 97 mg/dl (70-99); Sodium 136 mmol/L (135-145); eGFR > 60.00
[2023-05-16 07:00] VITALS: BP 133/83
[2023-05-16] MEDS: CARDIZEM CD 120 MG PO (08:51)
[2023-05-16] MEDS: TOPROL XL 50 MG PO (08:51)
[2023-05-16] MEDS: LOW STRENGTH ASPIRIN 81 MG PO (08:51)
--- NOTE | 2023-05-16 11:02 | W.PN.GS2 ---
Today's Communication / Plan
-
`
Assessment / Plan
-
IMPRESSION: 77-year-old male status post ex lap, lysis of adhesions small bowel resection 04/28/2023 and RAL reversal and colostomy 04/15/2023 with possible reactive enteritis vs low grade pSBO
AF VSS
White blood cell count remains normal
Abdominal examination benign
flatus and bowel movements
PLAN: IV fluid, low residue diet cautiously for lunch. Dietary counseling regarding smaller portion sizes, low residue foods and starting supplements
DC home after lunch
Scheduled for outpatient surgical follow-up with Dr. Smith this week
Subjective Data
-
Date of Service: May 16, 2023
Patient seen and examined.
Very mild cramps overnight similar to as he was experiencing at home during his recovery but not like what prompted him to present to the emergency department on Wednesday AM.
No nausea, no vomiting
No significant abdominal pain
Slept well overnight
Passing flatus and had loose BMs
Objective Data
-
Intake and Output
05/15/23 05/16/23 05/17/23
06:59 06:59 06:59
Intake Total 3100 / 3100
Balance 3100 / 3100
Intake:
Oral fluids 1800 / 1800
IV fluids (Total) 1300 / 1300
Other:
Number of approximated MODERATE 2
amounts of urine
Vital Signs
Temp Pulse Resp BP Pulse Ox
98.1 F 94 18 133/83 96
05/16/23 07:00 05/16/23 08:51 05/16/23 07:00 05/16/23 08:51 05/16/23 07:00
Lab Results
05/16/23 05:41
05/16/23 05:41
Calcium 9.2 mg/dl (8.4-10.2) 05/16/23 05:41
Total Bilirubin 0.8 mg/dl (0.2-1.3) 05/15/23 05:29
AST 17 U/L (17-59) 05/15/23 05:29
ALT 16 U/L (0-50) 05/15/23 05:29
Alkaline Phosphatase 77 U/L (38-126) 05/15/23 05:29
Total Protein 5.5 g/dl (6.3-8.2) L 05/15/23 05:29
Albumin 2.6 g/dl (3.5-5.0) L 05/15/23 05:29
Physical Exam
-
NAD AAOx3
ABD: Soft, nondistended, no significant tympany on percussion. Minimal tenderness infraumbilical, right lower quadrant. No rebound rigidity or guarding.
--- NOTE | 2023-05-16 13:02 | CM ---
Patient seen bedside, initial assessment completed. Patient reports he lives with his in a two story home, 3 steps to enter. Patient denies DME, reports [facility] in past, denies SNF. Patient confirms PCP Dr. Reyes, has prescription
coverage, pharmacy is [facility] in [place]. BUNN form reviewed, signed, placed in patients chart. Patient reports he believes he is being discharged today. CM will continue to follow for discharge planning needs.
Plan; home no needs.
[2023-05-16 13:20] VITALS: BP 112/66
--- NOTE | 2023-05-16 13:41 | W.DCSUMMARY ---
Discharge Summary
Discharge Data
Date of Admission: 05/15/23
Date of Discharge: 05/16/23
-
Pending Results: No
Hospital Course
77 yo male with recent robotic assisted laparoscopic colostomy reversal on 04/15/2023 with return to OR on 04/28/23 due to a small bowel obstruction for lysis of adhesions with small bowel resection who presented with acute onset of abdominal pain with
possible reactive enteritis vs low grade pSBO on imaging. He had previously been recovering well at home and tolerating diet with normal stooling. He was admitted overnight from the ED on liquid diet with interval improvement in pain. He was able to
pass several bowel movements and diet was advanced to low residue and well tolerated. He was discharged to home with outpatient follow up planned later this week with primary surgeon.
Discharge Plan
-
Patient Disposition: Home (Routine Discharge)
Discharge Diagnosis/Procedures: Postoperative enteritis versus low-grade partial small bowel obstruction
Condition: Good
Diet: Low Fiber
Additional Diets: Continue with smaller portion sizes, supplement with protein shakes once to twice a day
Activity: No strenuous activity
Driving Restrictions: As prior to admission
Bathing Restrictions: OK to Shower
Referrals:
Aron Smith MD [Active] - (As already scheduled)
Prescriptions:
Continued
aspirin 81 mg Tablet,Chewable
81 mg PO DAILY Qty: 30 0RF
diltiazem HCl [Cardizem CD] 120 mg capsule,extended release 24hr
120 mg PO DAILY Qty: 30 0RF
metoprolol succinate 50 mg Tablet Extended Release 24 Hr
50 mg PO DAILY
tramadol 50 mg tablet
50 mg PO Q6H PRN (Reason: Moderate Pain)
Patient Comments:
05/15/2023: last filled 05/03/23, 20 tabs for 5 days from [facility]
Discharge Orders:
Discharge Patient (As Directed); Ordered 05/16/23
Ordered By: Sonny Jeff
Discharge Date and Time
Discharge Date/Time: 05/16/23 13:30
Print Language: WELSH
--- NOTE | 2023-05-19 10:56 | W.DCSUMMARY ---
Discharge Summary
Discharge Data
Date of Admission: 04/15/23
Date of Discharge: 05/03/23
-
Pending Results: No
Hospital Course
77-year-old male underwent a scheduled robotic colostomy take due to secondary to complicated diverticulitis by Dr. Aron Smith on 04/15/2023. Ureter stents were placed prior to surgery by urology. 1 was removed immediately after surgery and the
second 1 was removed the following day. The patient went to the medical surgical floor. He had a Marques drain in the pelvis that was placed during surgery. On postop day 1 he was started on clear liquids. Lovenox was started for DVT prophylaxis.
The Lund was removed and he voided without difficulty. On postop day 2 he was started on a full liquid diet. On postop day 3 he had complained of nausea overnight and was back down to n.p.o. He is still complaining of cramping and nausea and an
NG tube was placed. A CT was performed on 04/21/2023 given continuous abdominal cramping and pain. This showed evidence for small bowel obstruction. The NG tube continued for several days. He was started on TPN on postop day 8. On postop day 12
he went into atrial fibrillation and was started on a Cardizem drip. It was decided that given his persistent small bowel obstruction leukocytosis, he would go back to the operating room. He then underwent an exploratory laparotomy, partial small
bowel resection, and flexible sigmoidoscopy by Dr. Aron Smith on 04/27/2023. He went back to the medical surgical floor with an NG tube still in place. He underwent a clamping trial on postop day 14 and postop day 2, and it was removed. He was
started on a clear liquid diet. His diet was gradually advanced to low residue and TPN was stopped. On postop day 18 and postop day 6, it was determined the patient could be discharged home once he is tolerating a diet. His white count was normal
at 8.6 upon discharge. Wound care, follow-up, and diet were discussed with the patient. He is to follow-up in the office in [address] Smith. All questions were answered.
Discharge Plan
-
Patient Disposition: Home (Routine Discharge)
Discharge Diagnosis/Procedures: Postoperative enteritis versus low-grade partial small bowel obstruction
Condition: Good
Diet: Low Fiber
Additional Diets: Continue with smaller portion sizes, supplement with protein shakes once to twice a day
Activity: No strenuous activity
Driving Restrictions: As prior to admission
Bathing Restrictions: OK to Shower
Referrals:
Aron Smith MD [Active] - (As already scheduled)
Prescriptions:
Continued
aspirin 81 mg Tablet,Chewable
81 mg PO DAILY Qty: 30 0RF
diltiazem HCl [Cardizem CD] 120 mg capsule,extended release 24hr
120 mg PO DAILY Qty: 30 0RF
metoprolol succinate 50 mg Tablet Extended Release 24 Hr
50 mg PO DAILY
tramadol 50 mg tablet
50 mg PO Q6H PRN (Reason: Moderate Pain)
Patient Comments:
05/15/2023: last filled 05/03/23, 20 tabs for 5 days from [facility]
Discharge Orders:
Discharge Patient (As Directed); Ordered 05/16/23
Ordered By: Sonny Jeff
Discharge Date and Time
Discharge Date/Time: 05/16/23 13:30
Print Language: FAROESE
== END 2023-05-16 13:30 | disposition home or self-care (01) ==
LOC: 4 WEST ACU 14:20
PROVIDERS: Emergency Medicine; Registered Nurse; ADMITTING PHYSICIAN Surgery; EMERGENCY PHYSICIAN Emergency Medicine; FAMILY PHYSICIAN Family Medicine
DX: K52.9 Noninfective gastroenteritis and colitis, unspecified (principal); R10.9 Unspecified abdominal pain; I10 Essential (primary) hypertension; I48.91 Unspecified atrial fibrillation; Z79.82 Long term (current) use of aspirin; D64.9 Anemia, unspecified; N40.0 Benign prostatic hyperplasia without lower urinary tract symptoms; K86.89 Other specified diseases of pancreas; Z90.49 Acquired absence of other specified parts of digestive tract
CPT/HCPCS: 74177; 80048; 80053; 83690; 85025; 85027; 93005; 99285; 99406; G0378; Q9967